=== PATIENT | male | born 1945 | race Caucasian/White ===

== ENCOUNTER 2019-12-08 16:37 | Observation (INO) | payer MEDICARE, OTHER ==
[2019-12-08 17:38] LABS: Basophils % (A) 0 %; Eosinophils # (A) 0.2 k/uL (0-0.7); Eosinophils % (A) 3 %; HCT 40.8 % (39.0-53.0); Lymphocytes # (A) 1.5 k/uL (1.0-4.8); Lymphocytes % (A) 20 %; MCH 28.9 pg (25.0-35.0); MCV 90.5 fL (80.0-100.0); Mean Platelet Volume 7.2; Monocytes # (A) 0.6 k/uL (0-1.0); Monocytes % (A) 8 %; Neutrophils % (A) 66 %; Platelet Count 209 k/uL (150-450); RBC 4.51 m/uL (4.30-5.90); RDW 13.4 % (11.5-15.5); WBC 7.5 k/uL (3.8-10.6)
[2019-12-08 17:48] LABS: INR 2.8 (<1.2); Partial Thromboplastin Time 37.3 sec (22.0-30.0); Prothrombin Time 27.2 sec (9.0-12.0)
[2019-12-08 17:51] LABS: Lactic Acid, Venous 1.1 mmol/L (0.7-2.0)
[2019-12-08 17:57] LABS: ALT 16 U/L (4-49); AST 23 U/L (17-59); Acetaminophen <10.0 ug/mL; African American GFR (CKD) 89 (>60 ml/min/1.73 sqM); Albumin 3.9 g/dL (3.5-5.0); Alcohol <10 mg/dL; Alkaline Phosphatase 41 U/L (38-126); Anion Gap 8 mmol/L; Blood Urea Nitrogen 16 mg/dL (9-20); Calcium 9.1 mg/dL (8.4-10.2); Carbon Dioxide 25 mmol/L (22-30); Chloride 105 mmol/L (98-107); Creatine Kinase 104 U/L (55-170); Glucose 109 mg/dL (74-99); Non-African American GFR(CKD) 77 (>60 ml/min/1.73 sqM); Potassium 4.2 mmol/L (3.5-5.1); Salicylate <1.0 mg/dL; Sodium 138 mmol/L (137-145); Total Bilirubin 0.3 mg/dL (0.2-1.3); Total Protein 6.8 g/dL (6.3-8.2)
--- NOTE | 2019-12-08 18:17 | CT ---
EXAMINATION TYPE: CT brain wo con DATE OF EXAM: 12/08/2019 HISTORY: Altered mental status. CT DLP: 1099.4 mGycm. Automated Exposure Control for Dose Reduction was Utilized. TECHNIQUE: CT scan of the head is performed without contrast. COMPARISON: CT brain January 19, 2016. FINDINGS: There is no acute intracranial hemorrhage or midline shift identified. There is diffuse v entricular and sulcal prominence consistent with diffuse age-related cerebral atrophy. There is low- attenuation in the periventricular white matter consistent with chronic small vessel ischemic change. The globes are intact and the visualized sinuses are clear. IMPRESSION: No acute intracranial hemorrhage or midline shift. There is mild diffuse age-related ce rebral atrophy and moderate chronic small vessel ischemic change redemonstrated. No significant benedict ge from prior study.
[2019-12-08 18:22] LABS: Appearance,Urine Clear (Clear); Bilirubin,Urine Negative (Negative); Blood,Urine Negative (Negative); Color,Urine Colorless; Glucose,Urine (UA) Negative (Negative); Ketones,Urine Negative (Negative); Leukocyte Esterase,Urine Negative (Negative); Nitrite,Urine Negative (Negative); PH, Urine 5.5 (5.0-8.0); Protein,Urine Negative (Negative); Specific Gravity,Urine 1.004 (1.001-1.035); Urobilinogen,Urine <2.0 mg/dL (<2.0)
[2019-12-08 18:42] LABS: Amphetamine Screen,Urine Not Detected (NotDetected); Barbiturate Screen,Urine Not Detected (NotDetected); Benzodiazepines Screen,Urine Not Detected (NotDetected); Cocaine Screen,Urine Not Detected (NotDetected); Methadone Screen, Urine Not Detected (NotDetected); Opiate Screen,Urine Not Detected (NotDetected); Oxycodone Screen, Urine Not Detected (NotDetected); Phencyclidine Screen,Urine Not Detected (NotDetected); Tricyclic Antidepressant,Urine Not Detected (NotDetected); Urn Cannabinoid Scrn Not Detected (NotDetected)
--- NOTE | 2019-12-08 18:53 | ED ---
Weakness HPI - General Chief complaint: Weakness Stated complaint: Weakness, Dizzy, Confused Time Seen by Provider: 12/08/19 16:45 Source: patient Mode of arrival: ambulatory Limitations: no limitations - History of Present Illness Initial comments: Patient is a 74-year-old male with past medical history of coronary artery disease, DVT who presents to the emergency department with reported altered mental status. Patient has a history of vertigo and does take meclizine occasionally. Last time he took it was several years ago. States that last night he felt the room spining slightly and therefore took a meclizine around midnight. He reports today that the patient was having some difficulties arousing. She was outside working in the yard. He cannot the yard and sat in a chair. He appeared overtly sleepy and she got concerned therefore she brought him into the emergency room for evaluation. Patient denies taking excess of the meclizine. Denies taking any [id number] medications. Denies any illicit drug use. He has not had a trauma where he hit his head. He's got no unilateral numbness or weakness. Patient does arouse, is not confused and answers all questions appropriately however just states he feels generally weak. No fevers or chills. No neck pain or shortness of breath. No chest pain or shortness of breath. No recent medication changes. There are no other alleviating, Perceptin modifying factors - Related Data Home Medications Medication Instructions Recorded Confirmed Famotidine [Pepcid] 40 mg PO DAILY 12/08/19 12/08/19 Selenium 200 mcg PO DAILY 12/09/19 12/09/19 Warfarin [Coumadin] 2 mg PO TUTHSA 12/09/19 12/09/19 Warfarin [Coumadin] 4 mg PO SUMOWEFR 12/09/19 12/09/19 Allergies Allergy/AdvReac Type Severity Reaction Status Date / Time heparin Allergy Unknown Verified 12/08/19 18:56 Review of Systems ROS Statement: Those systems with pertinent positive or pertinent negative responses have been documented in the HPI. ROS Other: All systems not noted in ROS Statement are negative. Past Medical History Past Medical History: Blood Disorder, Coronary Artery Disease (CAD), Deep Vein Thrombosis (DVT), Hyperlipidemia, Myocardial Infarction (AR), Vascular Disorder Additional Past Medical History / Comment(s): heparin induced thromocytopenia, BEGINNINGS OF CATARACTS,ARTHRITIS, DIVERTICULITIS Last Myocardial Infarction Date:: 2002 History of Any Multi-Drug Resistant Organisms: None Reported Past Surgical History: Coronary Bypass/CABG, Hernia Repair Additional Past Surgical History / Comment(s): lien filter placement, left heart catheterization, CABG 2, colonoscopy about a year ago. Past Anesthesia/Blood Transfusion Reactions: No Reported Reaction, Motion Sickness Past Psychological History: No Psychological Hx Reported Smoking Status: Never smoker Past Alcohol Use History: None Reported Past Drug Use History: None Reported - Past Family History Mother Family Medical History: Renal Disease Father Family Medical History: Cancer, COPD Sister(s) Family Medical History: No Reported History Brother(s) Family Medical History: No Reported History General Exam Limitations: no limitations General appearance: alert, in no apparent distress, lethargic, other (follows all commands. Answers questions appropriately) Head exam: Present: atraumatic, normocephalic, normal inspection Eye exam: Present: normal appearance, PERRL, EOMI. Absent: scleral icterus, conjunctival injection, periorbital swelling ENT exam: Present: normal exam, mucous membranes moist Neck exam: Present: normal inspection. Absent: tenderness, meningismus, lymphadenopathy Respiratory exam: Present: normal lung sounds bilaterally. Absent: respiratory distress, wheezes, rales, rhonchi, stridor Cardiovascular Exam: Present: regular rate, normal rhythm, normal heart sounds. Absent: systolic murmur, diastolic murmur, rubs, gallop, clicks GI/Abdominal exam: Present: soft, normal bowel sounds. Absent: distended, tenderness, guarding, rebound, rigid Extremities exam: Present: normal inspection, full ROM, normal capillary refill. Absent: tenderness, pedal edema, joint swelling, calf tenderness Back exam: Present: normal inspection Neurological exam: Present: alert, oriented X3, CN II-XII intact Psychiatric exam: Present: normal affect, normal mood Skin exam: Present: warm, dry, intact, normal color. Absent: rash Course Vital Signs 12/08/19 12/08/19 16:44 19:37 Temperature 98.4 F Pulse Rate 63 50 L Respiratory 16 16 Rate Blood Pressure 115/69 139/89 O2 Sat by Pulse 95 99 Oximetry EKG Findings - EKG Comments: EKG Findings:: EKG demonstrates normal sinus rhythm with a sinus arrhythmia. Rate of 63. Return once daily. QRS 152. QTC of 468. There is a right bundle- branch block with a left anterior fascicular block. No acute ST segment elevations. Medical Decision Making - Medical Decision Making Upon arrival the patient is placed into room 2. A thorough history and physical exam was performed. Peripheral IV was established. Laboratory studies were co nducted. A urinalysis obtained. Patient's INR is 2.8. Remainder of laboratory studies are unremarkable. I did CT the patient's brain which demonstrates no acute intracranial hemorrhage or midline shift. Patient has an NIH of 0. This is reassessed multiple times and remains negative. The patient does arouse with verbal stimuli. The patient does appear continuously sedated and therefore I do recommend hospital admission for continued observation and possible neurology consultation of this does not improve. Patient's and patient were agreeable to this. Bridging orders were placed. Discussed the case with Dr. Rendon who accepted admission. Patient is awaiting a bed on the floor - Lab Data Result diagrams: 12/09/19 05:51 12/09/19 05:51 Lab Results 12/08/19 12/08/19 12/08/19 Range/Units 17:15 17:18 17:18 WBC 7.5 (3.8-10.6) k/uL RBC 4.51 (4.30-5.90) m/uL Hgb 13.0 (13.0-17.5) gm/dL Hct 40.8 (39.0-53.0) % MCV 90.5 (80.0-100.0) fL MCH 28.9 (25.0-35.0) pg MCHC 32.0 (31.0-37.0) g/dL RDW 13.4 (11.5-15.5) % Plt Count 209 (150-450) k/uL Neutrophils % 66 % Lymphocytes % 20 % Monocytes % 8 % Eosinophils % 3 % Basophils % 0 % Neutrophils # 5.0 (1.3-7.7) k/uL Lymphocytes # 1.5 (1.0-4.8) k/uL Monocytes # 0.6 (0-1.0) k/uL Eosinophils # 0.2 (0-0.7) k/uL Basophils # 0.0 (0-0.2) k/uL PT 27.2 H (9.0-12.0) sec INR 2.8 H (<1.2) APTT 37.3 H (22.0-30.0) sec Sodium (137-145) mmol/L Potassium (3.5-5.1) mmol/L Chloride (98-107) mmol/L Carbon Dioxide (22-30) mmol/L Anion Gap mmol/L BUN (9-20) mg/dL Creatinine (0.66-1.25) mg/dL Est GFR (CKD-EPI)AfAm (>60 ml/min/1.73 sqM) Est GFR (CKD-EPI)NonAf (>60 ml/min/1.73 sqM) Glucose (74-99) mg/dL POC Glucose (mg/dL) 114 H (75-99) mg/dL POC Glu Bank Messenger ID Rebecca Caro Plasma Lactic Acid Guido (0.7-2.0) mmol/L Calcium (8.4-10.2) mg/dL Total Bilirubin (0.2-1.3) mg/dL AST (17-59) U/L ALT (4-49) U/L Alkaline Phosphatase (38-126) U/L Ammonia (<30) umol/L Creatine Kinase (55-170) U/L Troponin I (0.000-0.034) ng/mL Total Protein (6.3-8.2) g/dL Albumin (3.5-5.0) g/dL Urine Color Urine Appearance (Clear) Urine pH (5.0-8.0) Ur Specific [place] (1.001-1.035) Urine Protein (Negative) Urine Glucose (UA) (Negative) Urine Ketones (Negative) Urine Blood (Negative) Urine Nitrite (Negative) Urine Bilirubin (Negative) Urine Urobilinogen (<2.0) mg/dL Ur Leukocyte Esterase (Negative) Salicylates mg/dL Urine Opiates Screen (NotDetected) Ur Oxycodone Screen (NotDetected) Urine Methadone Screen (NotDetected) Ur Propoxyphene Screen (NotDetected) Acetaminophen ug/mL Ur Barbiturates Screen (NotDetected) U Tricyclic Antidepress (NotDetected) Ur Phencyclidine Scrn (NotDetected) Ur Amphetamines Screen (NotDetected) U Methamphetamines Scrn (NotDetected) U Benzodiazepines Scrn (NotDetected) Urine Cocaine Screen (NotDetected) U Marijuana (THC) Screen (NotDetected) Serum Alcohol mg/dL 12/08/19 12/08/19 12/08/19 Range/Units 17:18 17:18 17:18 WBC (3.8-10.6) k/uL RBC (4.30-5.90) m/uL Hgb (13.0-17.5) gm/dL Hct (39.0-53.0) % MCV (80.0-100.0) fL MCH (25.0-35.0) pg MCHC (31.0-37.0) g/dL RDW (11.5-15.5) % Plt Count (150-450) k/uL Neutrophils % % Lymphocytes % % Monocytes % % Eosinophils % % Basophils % % Neutrophils # (1.3-7.7) k/uL Lymphocytes # (1.0-4.8) k/uL Monocytes # (0-1.0) k/uL Eosinophils # (0-0.7) k/uL Basophils # (0-0.2) k/uL PT (9.0-12.0) sec INR (<1.2) APTT (22.0-30.0) sec Sodium 138 (137-145) mmol/L Potassium 4.2 (3.5-5.1) mmol/L Chloride 105 (98-107) mmol/L Carbon Dioxide 25 (22-30) mmol/L Anion Gap 8 mmol/L BUN 16 (9-20) mg/dL Creatinine 0.96 (0.66-1.25) mg/dL Est GFR (CKD-EPI)AfAm 89 (>60 ml/min/1.73 sqM) Est GFR (CKD-EPI)NonAf 77 (>60 ml/min/1.73 sqM) Glucose 109 H (74-99) mg/dL POC Glucose (mg/dL) (75-99) mg/dL POC Glu Bank Messenger ID Plasma Lactic Acid Guido 1.1 (0.7-2.0) mmol/L Calcium 9.1 (8.4-10.2) mg/dL Total Bilirubin 0.3 (0.2-1.3) mg/dL AST 23 (17-59) U/L ALT 16 (4-49) U/L Alkaline Phosphatase 41 (38-126) U/L Ammonia <9 (<30) umol/L Creatine Kinase 104 (55-170) U/L Troponin I <0.012 (0.000-0.034) ng/mL Total Protein 6.8 (6.3-8.2) g/dL Albumin 3.9 (3.5-5.0) g/dL Urine Color Urine Appearance (Clear) Urine pH (5.0-8.0) Ur Specific [place] (1.001-1.035) Urine Protein (Negative) Urine Glucose (UA) (Negative) Urine Ketones (Negative) Urine Blood (Negative) Urine Nitrite (Negative) Urine Bilirubin (Negative) Urine Urobilinogen (<2.0) mg/dL Ur Leukocyte Esterase (Negative) Salicylates <1.0 mg/dL Urine Opiates Screen (NotDetected) Ur Oxycodone Screen (NotDetected) Urine Methadone Screen (NotDetected) Ur Propoxyphene Screen (NotDetected) Acetaminophen <10.0 ug/mL Ur Barbiturates Screen (NotDetected) U Tricyclic Antidepress (NotDetected) Ur Phencyclidine Scrn (NotDetected) Ur Amphetamines Screen (NotDetected) U Methamphetamines Scrn (NotDetected) U Benzodiazepines Scrn (NotDetected) Urine Cocaine Screen (NotDetected) U Marijuana (THC) Screen (NotDetected) Serum Alcohol <10 mg/dL 12/08/19 Range/Units 18:11 WBC (3.8-10.6) k/uL RBC (4.30-5.90) m/uL Hgb (13.0-17.5) gm/dL Hct (39.0-53.0) % MCV (80.0-100.0) fL MCH (25.0-35.0) pg MCHC (31.0-37.0) g/dL RDW (11.5-15.5) % Plt Count (150-450) k/uL Neutrophils % % Lymphocytes % % Monocytes % % Eosinophils % % Basophils % % Neutrophils # (1.3-7.7) k/uL Lymphocytes # (1.0-4.8) k/uL Monocytes # (0-1.0) k/uL Eosinophils # (0-0.7) k/uL Basophils # (0-0.2) k/uL PT (9.0-12.0) sec INR (<1.2) APTT (22.0-30.0) sec Sodium (137-145) mmol/L Potassium (3.5-5.1) mmol/L Chloride (98-107) mmol/L Carbon Dioxide (22-30) mmol/L Anion Gap mmol/L BUN (9-20) mg/dL Creatinine (0.66-1.25) mg/dL Est GFR (CKD-EPI)AfAm (>60 ml/min/1.73 sqM) Est GFR (CKD-EPI)NonAf (>60 ml/min/1.73 sqM) Glucose (74-99) mg/dL POC Glucose (mg/dL) (75-99) mg/dL POC Glu Bank Messenger ID Plasma Lactic Acid Guido (0.7-2.0) mmol/L Calcium (8.4-10.2) mg/dL Total Bilirubin (0.2-1.3) mg/dL AST (17-59) U/L ALT (4-49) U/L Alkaline Phosphatase (38-126) U/L Ammonia (<30) umol/L Creatine Kinase (55-170) U/L Troponin I (0.000-0.034) ng/mL Total Protein (6.3-8.2) g/dL Albumin (3.5-5.0) g/dL Urine Color Colorless Urine Appearance Clear (Clear) Urine pH 5.5 (5.0-8.0) Ur Specific [place] 1.004 (1.001-1.035) Urine Protein Negative (Negative) Urine Glucose (UA) Negative (Negative) Urine Ketones Negative (Negative) Urine Blood Negative (Negative) Urine Nitrite Negative (Negative) Urine Bilirubin Negative (Negative) Urine Urobilinogen <2.0 (<2.0) mg/dL Ur Leukocyte Esterase Negative (Negative) Salicylates mg/dL Urine Opiates Screen Not Detected (NotDetected) Ur Oxycodone Screen Not Detected (NotDetected) Urine Methadone Screen Not Detected (NotDetected) Ur Propoxyphene Screen Not Detected (NotDetected) Acetaminophen ug/mL Ur Barbiturates Screen Not Detected (NotDetected) U Tricyclic Antidepress Not Detected (NotDetected) Ur Phencyclidine Scrn Not Detected (NotDetected) Ur Amphetamines Screen Not Detected (NotDetected) U Methamphetamines Scrn Not Detected (NotDetected) U Benzodiazepines Scrn Not Detected (NotDetected) Urine Cocaine Screen Not Detected (NotDetected) U Marijuana (THC) Screen Not Detected (NotDetected) Serum Alcohol mg/dL Disposition Clinical Impression: Acute encephalopathy Disposition: ADMITTED IP TO THIS HOSP Condition: Stable Is patient prescribed a controlled substance at d/c from ED?: No Decision to Admit Reason: Admit from EC Decision Date: 12/08/19 Decision Time: 18:59
[2019-12-08] MEDS ORDERED: NALOXONE 0.4 MG/ML 1 ML VIAL IV PRN (18:59)
[2019-12-08] MEDS: SODIUM CHLORIDE 0.9% 1,000 ML IV SCH (19:35)
[2019-12-09 06:41] LABS: African American GFR (CKD) >90 (>60 ml/min/1.73 sqM); Anion Gap 5 mmol/L; Blood Urea Nitrogen 15 mg/dL (9-20); Calcium 8.4 mg/dL (8.4-10.2); Carbon Dioxide 27 mmol/L (22-30); Chloride 108 mmol/L (98-107); Glucose 101 mg/dL (74-99); Non-African American GFR(CKD) 84 (>60 ml/min/1.73 sqM); Potassium 4.4 mmol/L (3.5-5.1); Sodium 140 mmol/L (137-145)
[2019-12-09 06:56] LABS: Basophils % (A) 0 %; Eosinophils # (A) 0.2 k/uL (0-0.7); Eosinophils % (A) 3 %; HCT 40.1 % (39.0-53.0); Lymphocytes # (A) 1.4 k/uL (1.0-4.8); Lymphocytes % (A) 19 %; MCH 29.8 pg (25.0-35.0); MCHC 32.5 g/dL (31.0-37.0); MCV 91.7 fL (80.0-100.0); Mean Platelet Volume 7.2; Monocytes # (A) 0.5 k/uL (0-1.0); Monocytes % (A) 7 %; Neutrophils % (A) 69 %; Platelet Count 188 k/uL (150-450); RBC 4.37 m/uL (4.30-5.90); RDW 13.4 % (11.5-15.5); WBC 7.2 k/uL (3.8-10.6)
[2019-12-09] MEDS: SODIUM CHLORIDE 0.9% 1,000 ML IV SCH (08:11)
[2019-12-09] MEDS ORDERED: FAMOTIDINE 20 MG TAB PO SCH (09:00)
[2019-12-09 09:36] LABS: INR 2.5 (<1.2); Prothrombin Time 24.7 sec (9.0-12.0)
[2019-12-09 10:21] VITALS: RESP 18
--- NOTE | 2019-12-09 12:45 | P.CNNES ---
History of Present Illness Consult date: 12/09/19 Requesting physician: Jelly Engle Reason for Consult: Acute encephalopathy History of Present Illness: Patient is a 74-year-old male with past medical history of coronary artery disease, DVT on anticoagulation with Coumadin came to the hospital yesterday at 4:37 PM with altered mental status. Patient states that he has history of episodic dizziness/lightheadedness. The first episode occurred about 1-1/2 years ago, for which she was given Antivert. He took it for 4 or 5 days of the symptoms resolved. He was fine until 2 nights ago, when he had similar episode. He felt dizzy lightheaded. He was not doing any particular activity which triggered it. At bedtime he took the Antivert and then went to sleep. The next day, which is yesterday, he was very drowsy, groggy, hard to wake up. He denied any slurred speech facial droop, double vision loss of vision headaches, focal weakness or any focal symptoms. He got concerned therefore came to the ER. Patient's vital signs on arrival was 115/69, pulse rate 60 temperature 98.4. Patient underwent CT head, which showed no acute intracranial hemorrhage or midline shift. Mild diffuse age-related cerebral atrophy and moderate chronic small vessel ischemic change. No differentiation from prior study. On my review, the visualized paranasal sinuses are clear. External auditory canal is clear. EKG shows normal sinus rhythm with sinus arrhythmia. Right bundle branch block. Left anterior fascicular block. Patient's blood test shows normal CBC. PT is 27.8 INR 2.8 PTT 37.3. Chem-7 normal. Hepatic panel normal ammonia <9. Troponin, UA, urine drug screen negative. Patient states that his mentation has improved. He still feels slightly off b alance when walking. Patient is a nonsmoker. Does not drink alcohol. Patient has history of coronary artery disease. He has history of bypass surgery. He has chronic hearing loss, chronic tinnitus for almost 20 years. Denies diabetes or hypertension. Patient states that when he gets up fast, he does get dizzy. He does not have any positional vertigo. Does not get dizzy when he rolls over in the bed bends down or looks up. Review of Systems As per history of present illness. All other 14 point review of systems reviewed and was unremarkable. Denies hoarseness sore throat dysphagia. Denies any chest pain shortness of breath. Denies wheezing cough. Denies abdominal pain nausea vomiting. Past Medical History Past Medical History: Blood Disorder, Coronary Artery Disease (CAD), Deep Vein Thrombosis (DVT), Hyperlipidemia, Myocardial Infarction (PR), Vascular Disorder Additional Past Medical History / Comment(s): heparin induced thromocytopenia, BEGINNINGS OF CATARACTS,ARTHRITIS, DIVERTICULITIS Last Myocardial Infarction Date:: 2002 History of Any Multi-Drug Resistant Organisms: None Reported Past Surgical History: Coronary Bypass/CABG, Hernia Repair Additional Past Surgical History / Comment(s): lien filter placement, left heart catheterization, CABG 2, colonoscopy about a year ago. Past Anesthesia/Blood Transfusion Reactions: No Reported Reaction, Motion Sickness Past Psychological History: No Psychological Hx Reported Smoking Status: Never smoker Past Alcohol Use History: None Reported Past Drug Use History: None Reported - Past Family History Mother Family Medical History: Renal Disease Father Family Medical History: Cancer, COPD Sister(s) Family Medical History: No Reported History Brother(s) Family Medical History: No Reported History Medications and Allergies Home Medications Medication Instructions Recorded Confirmed Type Famotidine [Pepcid] 40 mg PO DAILY 12/08/19 12/08/19 History Selenium 200 mcg PO DAILY 12/09/19 12/09/19 History Warfarin [Coumadin] 2 mg PO TUTHSA 12/09/19 12/09/19 History Warfarin [Coumadin] 4 mg PO SUMOWEFR 12/09/19 12/09/19 History Allergies Allergy/AdvReac Type Severity Reaction Status Date / Time heparin Allergy Unknown Verified 12/08/19 18:56 Physical Examination - Vital Signs Vital Signs: Vital Signs Temp Pulse Pulse Resp BP BP Pulse Ox 12/09/19 04:43 98.5 F 66 18 126/77 94 L 12/08/19 23:40 16 12/08/19 20:20 97.8 F 60 16 132/67 97 12/08/19 20:10 16 12/08/19 19:37 50 L 16 139/89 99 12/08/19 16:44 98.4 F 63 16 115/69 95 Intake and Output 12/08/19 12/09/19 12/09/19 22:59 06:59 14:59 Intake Total 350 1100 Balance 350 1100 Intake: Intake, IV Titration 150 600 Amount Sodium Chloride 0.9% 1, 150 600 000 ml @ 75 mls/hr IV . [id number] [facility] Rx#:[id number] Oral 200 500 Other: Voiding Method Toilet Toilet Toilet Urinal Urinal Urinal # Voids 1 1 Weight 79.379 kg On examination patient is an elderly male, very pleasant in no acute distress. He is alert and awake, fully oriented to time place and person. Speech and language functions are normal. Attention, concentration, fund of knowledge is adequate. On cranial nerve examination pupils are round and reactive to light, visual chisholm are full on confrontation. Extraocular muscles are intact with no nystagmus. Face is symmetric, tongue protrudes to the midline. Palatal elevation and sensation normal. Hearing is moderately decreased particularly for finger rubbing. Shoulder shrug normal. On muscle strength testing there is no pronator drift and the strength is normal in arms and legs distally and proximally. Reflexes are 1+ and plantars are downgoing bilaterally. Sensory touch is equal. No ataxia for [id number] or [id number] testing. Tone and bulk of muscles normal. Gait deferred. S1 and S2 audible. Abdomen soft nontender. Chest clear. Patient has mild peripheral edema. Peripheral pulses are not clearly felt. He has some skin color change distally in the legs. Results - Laboratory Findings CBC and BMP: 12/09/19 05:51 12/09/19 05:51 Abnormal Lab Findings: Abnormal Labs 12/08/19 12/08/19 12/09/19 17:18 17:18 05:51 PT 27.2 H INR 2.8 H APTT 37.3 H Chloride 108 H Glucose 109 H 101 H 12/09/19 08:13 PT 24.7 H INR 2.5 H APTT Chloride Glucose Assessment and Plan Assessment: * 74-year-old male came with an episode of dizziness, lightheadedness. Patient took Antivert and then became somnolent the whole next day. Uncertain if it was a side effect of medication, or some other cause of transient encephalopathy. All other metabolic workup negative. No focal symptoms noted, therefore TIA unlikely. Patient is on anticoagulation with therapeutic INR. * Intermittent episodes of vertigo, likely due to peripheral vestibular dysfunction. Patient does not have any positional vertigo, therefore doubt BPPV. * History of DVT on anticoagulation. Plan: * We will check carotid Doppler to rule out carotid stenosis. * Suggest ENT consult as an outpatient for ENFG/VNG, to evaluate for vestibular dysfunction, rule out BPPV or other causes of vestibulopathy. * Continue Coumadin. INR is therapeutic. * Neurologically clear for discharge, after carotid Doppler results are available. * We will check B12, folate. Addendum: Carotid Doppler showed no hemodynamic significant stenosis of the proximal ICA. Antegrade flow in both vertebral arteries.
--- NOTE | 2019-12-09 13:03 | US ---
EXAMINATION TYPE: US carotid duplex BILAT DATE OF EXAM: 12/09/2019 COMPARISON: NONE CLINICAL HISTORY: rule out stenosis. Altered mental status, confusion EXAM MEASUREMENTS: RIGHT: Peak Systolic Velocity (PSV) cm/sec ----- Right CCA: 100.0 ----- Right ICA: 96.0 ----- Right ECA: 121.0 ICA/CCA ratio: 1.0 RIGHT: End Diastole cm/sec ----- Right CCA: 22.7 ----- Right ICA: 23.2 ----- Right ECA: 19.4 LEFT: Peak Systolic Velocity (PSV) cm/sec ----- Left CCA: 109.0 ----- Left ICA: 87.5 ----- Left ECA: 123.0 ICA/CCA ratio: 0.8 LEFT: End Diastole cm/sec ----- Left CCA: 22.0 ----- Left ICA: 17.8 ----- Left ECA: 24.9 VERTEBRALS (direction of flow): Right Vertebral: Antegrade Left Vertebral: Antegrade Rhythm: Normal Bilateral intimal thickening, minimal plaque bilateral bulb, no elevated velocities, no significant s tenosis. Grayscale, color Doppler, spectral Doppler imaging performed of the carotid arteries. Waveform analysis does not show significant stenosis of the internal carotid arteries. IMPRESSION: No hemodynamic significant stenosis of the proximal internal carotid arteries by Doppler criteria, an indirect measurement of carotid stenosis Criteria for Assigning % of Stenosis / Diameter reduction (Estimation based on the indirect measurements of the internal carotid artery velocities (ICA PSV). 1. Normal (no stenosis)=ICA PSV < 125 cm/s: ratio < 2.0: ICA EDV<40 cm/s. 2. Less than 50% stenosis=ICA PSV < 125 cm/s: ratio < 2.0: ICA EDV<40 cm/s. 3. 50 to 69% stenosis=ICA PSV of 125 to 230 cm/s: ration 2.0 ? 4.0: ICA EDV 40-100 cm/s. 4. Greater than 70% stenosis to near occlusion= ICA PSV > 230 cm/s: ratio > 4.0: ICA EDV > 100 cm/s. 5. Near occlusion= ICA PSV velocities may be low or undetectable: variable ratio and ICA EDV. 6. Total occlusion=unable to detect flow.
--- NOTE | 2019-12-09 13:35 | P.HPIM ---
History of Present Illness H&P Date: 12/09/19 HISTORY AND PHYSICAL AND DISCHARGE SUMMARY: Patient is a 74-year-old male patient of Dr. Eric Lazaro with past medical history of coronary artery disease status post [address] Stevenson, DVT on long-term Coumadin, hyperlipidemia, peripheral vascular disease, history of heparin-induced cytopenia. Patient gives history that he has had problems with dizziness in the past and has taken meclizine before. He has not taking any meclizine for greater than 1 year. Yesterday he was feeling the room spinning and he took meclizine around midnight and then he was having difficulty arousing. His thought he was sleepy and she was concerned and brought him into the emergency center for evaluation. He did not have any numbness or weakness. He was not confused. He was arousable and able to answer questions appropriately but felt a little off. He had some mild generalized weakness. He states he has also had trouble taking Valium in the past. He was afebrile in hemodynamically stable, EKG was a sinus rhythm with no acute ST changes. CBC electrolytes and renal function are all within normal limits. Blood sugar 109, INR 2.8. Liver function tests normal. Salicylate level, acetaminophen level and alcohol levels were all normal. Urinalysis was negative for infection. Urine drug screen was negative. Lactic acid 1.1, ammonia level less than 9. Troponin normal. Patient was placed on the Medr floor and consult with neurology was obtained. Patient was seen by Dr. Phillip, vitamin B12 and folate levels ordered. Carotid duplex showed no hemodynamically significant stenosis. Recommended ENT consult for outpatient ENFG/VNG. Patient states this morning that he is close to his baseline and feels that he is safe to go home. He denie s any current dizziness or lightheadedness. He denies any loss of consciousness. He does have chronic hearing loss. The patient will be discharged home today in follow-up with Dr. Lazaro next week. ENT follow-up to be determined by Dr. Lazaro. Review of Systems Constitutional: No fever, no chills, no night sweats. No weight change. No weakness, fatigue or lethargy. Reports daytime sleepiness. EENT: No headache. No blurred vision or double vision, no loss of vision. No loss of Hearing, no ringing in the ears, no dizziness. No nasal drainage or congestion. No epistaxis. No sore throat. Lungs: No shortness of breath, cough, no sputum production. No wheezing. Cardiovascular: No chest pain, no lower extremity edema. No palpitations. No paroxysmal nocturnal dyspnea. No orthopnea. No lightheadedness or dizziness. No syncopal episodes. Abdominal: No abdominal pain. No nausea, vomiting. No diarrhea. No constipation. No bloody or tarry stools. No loss of appetite. Genitourinary: No dysuria, increased frequency, urgency. No urinary retention. Musculoskeletal: No myalgias. No muscle weakness, no gait dysfunction, no frequent falls. No back pain. No neck pain. Integumentary: No wounds, no lesions. No rash or pruritus. No unusual brui sing. No change in hair or nails. Neurologic: No aphasia. No facial droop. No change in mentation. No head injury. No headache. No paralysis. No paresthesia. Psychiatric: No depression. No anxiety. No mood swings. Endocrine: No abnormal blood sugars. No weight change. No excessive sweating or thirst. No cold intolerance. Physical Examination Gen: This is a 74-year-old male. Patient is resting in bed and appears to be comfortable and in no acute distress. HEENT: Head is atraumatic, normocephalic. Pupils equal, round. Sclerae is anicteric. NECK: Supple. No JVD. No lymphadenopathy. No thyromegaly. LUNGS: Clear to auscultation. No wheezes or rhonchi. No intercostal retractions. HEART: Regular rate and rhythm. No murmur. ABDOMEN: Soft. Bowel sounds are present. No masses. No tenderness. EXTREMITIES: No pedal edema. No calf tenderness. NEUROLOGICAL: Patient is awake, alert and oriented x3. Cranial nerves 2 through 12 are grossly intact. Assessment and Plan 1. Vertigo. 2. History of coronary artery disease with previous 2 vessel CABG, stable no complaints of chest pain. 3. DVT. Continue Coumadin. 4. History of heparin-induced thrombus cytopenia. 5. Peripheral vascular disease. 6. Hyperlipidemia. 7. COVID-19 infection not present. Patient placed as Observation status. Discharge plan: home Impression and plan of care have been directed as dictated by the signing physician. Lula Verduzco nurse practitioner acting as scribe for signing physician. Past Medical History Past Medical History: Blood Disorder, Coronary Artery Disease (CAD), Deep Vein Thrombosis (DVT), Hyperlipidemia, Myocardial Infarction ([place]), Vascular Disorder Additional Past Medical History / Comment(s): heparin induced thromocytopenia, BEGINNINGS OF CATARACTS,ARTHRITIS, DIVERTICULITIS Last Myocardial Infarction Date:: 2002 History of Any Multi-Drug Resistant Organisms: None Reported Past Surgical History: Coronary Bypass/CABG, Hernia Repair Additional Past Surgical History / Comment(s): lien filter placement, left heart catheterization, CABG 2, colonoscopy about a year ago. Past Anesthesia/Blood Transfusion Reactions: No Reported Reaction, Motion Sickness Past Psychological History: No Psychological Hx Reported Smoking Status: Never smoker Past Alcohol Use History: None Reported Additional Past Alcohol Use History / Comment(s): Patient is a lifelong nonsmoker, he drinks alcohol rarely. No marijuana or illicit drug use. He is and lives at home with his . Past Drug Use History: None Reported - Past Family History Mother Family Medical History: Renal Disease Additional Family Medical History / Comment(s): Mother at age 88 from chronic renal disease. Father Family Medical History: Cancer, COPD Additional Family Medical History / Comment(s): Father at age 72 from lung cancer. Sister(s) Family Medical History: No Reported History Additional Family Medical History / Comment(s): Patient has 3 sisters with no major medical problems. Brother(s) Family Medical History: No Reported History Additional Family Medical History / Comment(s): Patient has 3 half-brothers with no major medical problems. Patient has 6 children with no major medical problems. Medications and Allergies Home Medications Medication Instructions Recorded Confirmed Type Famotidine [Pepcid] 40 mg PO DAILY 12/08/19 12/08/19 History Selenium 200 mcg PO DAILY 12/09/19 12/09/19 History Warfarin [Coumadin] 2 mg PO TUTHSA 12/09/19 12/09/19 History Warfarin [Coumadin] 4 mg PO SUMOWEFR 12/09/19 12/09/19 History Allergies Allergy/AdvReac Type Severity Reaction Status Date / Time heparin Allergy Unknown Verified 12/08/19 18:56 Physical Exam Vitals: Vital Signs Temp Pulse Pulse Resp BP BP Pulse Ox 12/09/19 04:43 98.5 F 66 18 126/77 94 L 12/08/19 23:40 16 12/08/19 20:20 97.8 F 60 16 132/67 97 12/08/19 20:10 16 12/08/19 19:37 50 L 16 139/89 99 12/08/19 16:44 98.4 F 63 16 115/69 95 Intake and Output 12/08/19 12/09/19 12/09/19 22:59 06:59 14:59 Intake Total 350 1100 Balance 350 1100 Intake: Intake, IV Titration 150 600 Amount Sodium Chloride 0.9% 1, 150 600 000 ml @ 75 mls/hr IV . [id number] MAURICIO Rx#:[id number] Oral 200 500 Other: Voiding Method Toilet Toilet Urinal Urinal # Voids 1 1 Weight 79.379 kg Results CBC & Chem 7: 12/09/19 05:51 12/09/19 05:51 Labs: Abnormal Lab Results - Last 24 Hours (Table) 12/08/19 12/08/19 12/09/19 Range/Units 17:18 17:18 05:51 PT 27.2 H (9.0-12.0) sec INR 2.8 H (<1.2) APTT 37.3 H (22.0-30.0) sec Chloride 108 H (98-107) mmol/L Glucose 109 H 101 H (74-99) mg/dL Thrombosis Risk Factor Assmnt - Choose All That Apply Any of the Below Risk Factors Present?: Yes Other Risk Factors: Yes Each Risk Factor Represents 3 Points: Age 75 years or older, Heparin-induced thr ombocytopenia (HIT) Other congenital or acquired thrombophilia - If yes, enter type in comment: No Thrombosis Risk Factor Assessment Total Risk Factor Score: 6 Thrombosis Risk Factor Assessment Level: High Risk
[2019-12-09 14:09] LABS: Glucose,Whole Blood 114 mg/dL (75-99)
[2019-12-09 14:16] VITALS: BP 131/76; PULSE 69; TEMP 97.8
[2019-12-09] MEDS ORDERED: WARFARIN 2 MG TAB PO ONE (18:00)
[2019-12-10 10:49] LABS: Folate, Serum 16.4 ng/mL
== END 2019-12-09 16:25 | disposition home or self-care (01) ==
LOC: EC 16:37 → 5NMEDONC 18:59
PROVIDERS: ADMIT Internal Medicine Geriatric Medicine; ATTEND Internal Medicine Geriatric Medicine
DX: G92 Toxic encephalopathy (principal); T45.0X5A Adverse effect of antiallergic and antiemetic drugs, initial encounter; I25.10 Atherosclerotic heart disease of native coronary artery without angina pectoris; R42 Dizziness and giddiness; E78.5 Hyperlipidemia, unspecified; I73.9 Peripheral vascular disease, unspecified; H91.90 Unspecified hearing loss, unspecified ear; D75.9 Disease of blood and blood-forming organs, unspecified; I25.2 Old myocardial infarction; D75.82 Heparin induced thrombocytopenia (HIT); T45.515A Adverse effect of anticoagulants, initial encounter; H93.19 Tinnitus, unspecified ear; M19.90 Unspecified osteoarthritis, unspecified site; Z95.1 Presence of aortocoronary bypass graft; Z86.718 Personal history of other venous thrombosis and embolism; Z87.19 Personal history of other diseases of the digestive system; Z80.1 Family history of malignant neoplasm of trachea, bronchus and lung; Z82.5 Family history of asthma and other chronic lower respiratory diseases; Z79.01 Long term (current) use of anticoagulants; Z79.899 Other long term (current) drug therapy; Z88.8 Allergy status to other drugs, medicaments and biological substances; Z11.59 Encounter for screening for other viral diseases
CPT/HCPCS: 99285; 36415; 93005; 97161; 80053; 80048; 82607; 82140; 82550; 82746; 83605; 84484; 85025 ×2; 85610 ×2; 85730; 81003; 80306; 83520; 93880; 70450; G0378 ×2; G0480 ×2; U0003; 80320; 80329

== ENCOUNTER 2020-05-03 16:50 | Observation (INO) | payer MEDICARE, OTHER ==
[2020-05-03] MEDS ORDERED: ASPIRIN 81 MG PO STA (17:36)
[2020-05-03] MEDS ORDERED: NITROGLYCERIN OINT 1 INCH/GM PACKET TOPICAL STA (17:36)
--- NOTE | 2020-05-03 17:45 | ED ---
General Adult HPI - General Chief complaint: Chest Pain Stated complaint: Chest Discomfort Time Seen by Provider: 05/03/20 17:05 Source: patient, RN notes reviewed, old records reviewed Mode of arrival: ambulatory Limitations: no limitations - History of Present Illness Initial comments: This is a 74-year-old male who presents emergency department with past medical history significant for bypass surgery. Patient also has a high cholesterol. Patient comes into the emergency department today complaining of chest pain is been intermittent since yesterday. Patient states usually lasts 20-30 minutes when it comes. Patient states it then dissipates. Patient states currently he has no chest pain at all. Patient denies any difficulty breathing shortness of breath per patient denies any radiation of the pain. Patient denies any diaphoretic episodes. Patient denies any nausea vomiting. Patient has had no lightheadedness dizziness or near syncopal episode. Patient denies any recent fever chills or cough. Patient denies any lower extremity swelling or calf tenderness. - Related Data Home Medications Medication Instructions Recorded Confirmed Famotidine [Pepcid] 20 mg PO DAILY 12/08/19 05/03/20 Cholecalciferol [Vitamin D3 (25 2,000 unit PO DAILY 05/03/20 05/03/20 Mcg = 1000 Iu)] Potassium Gluconate 99 mg PO DAILY 05/03/20 05/03/20 Warfarin Sodium 2 mg PO TUTHSA@0900 05/03/20 05/03/20 Warfarin Sodium 4 mg PO SUMOWEFR@0900 05/03/20 05/03/20 Zinc 50 mg PO DAILY 05/03/20 05/03/20 Allergies Allergy/AdvReac Type Severity Reaction Status Date / Time heparin Allergy HEPARIN Verified 05/03/20 18:01 INDUCED THROMBOCYTOPENIA Review of Systems ROS Statement: Those systems with pertinent positive or pertinent negative responses have been documented in the HPI. ROS Other: All systems not noted in ROS Statement are negative. Past Medical History Past Medical History: Blood Disorder, Coronary Artery Disease (CAD), Deep Vein Thrombosis (DVT), Hyperlipidemia, Myocardial Infarction ([place]), Vascular Disorder Additional Past Medical History / Comment(s): heparin induced thromocytopenia, BEGINNINGS OF CATARACTS,ARTHRITIS, DIVERTICULITIS Last Myocardial Infarction Date:: 2002 History of Any Multi-Drug Resistant Organisms: None Reported Past Surgical History: Coronary Bypass/CABG, Hernia Repair Additional Past Surgical History / Comment(s): lien filter placement, left heart catheterization, CABG 2, colonoscopy about a year ago. Past Anesthesia/Blood Transfusion Reactions: No Reported Reaction, Motion Sickness Past Psychological History: No Psychological Hx Reported Smoking Status: Never smoker Past Alcohol Use History: None Reported Past Drug Use History: None Reported - Past Family History Mother Family Medical History: Renal Disease Additional Family Medical History / Comment(s): Mother at age 88 from chronic renal disease. Father Family Medical History: Cancer, COPD Additional Family Medical History / Comment(s): Father at age 72 from lung cancer. Sister(s) Family Medical History: No Reported History Additional Family Medical History / Comment(s): Patient has 3 sisters with no major medical problems. Brother(s) Family Medical History: No Reported History Additional Family Medical History / Comment(s): Patient has 3 half-brothers with no major medical problems. Patient has 6 children with no major medical problems. General Exam - General Exam Comments Initial Comments: GENERAL: Patient is well-developed and well-nourished. Patient is nontoxic and well- hydrated and is in no acute distress. ENT: Neck is soft and supple. No significant lymphadenopathy is noted. Oropharynx is clear. Moist mucous membranes. Neck has full range of motion without eliciting any pain. EYES: The sclera were anicteric and conjunctiva were pink and moist. Extraocular movements were intact and pupils were equal round and reactive to light. Eyelids were unremarkable. PULMONARY: Unlabored respirations. Good breath sounds bilaterally. No audible rales rhonchi or wheezing was noted. CARDIOVASCULAR: There is a regular rate and rhythm without any murmurs gallops or rubs. ABDOMEN: Soft and nontender with normal bowel sounds. SKIN: Skin is clear with no lesions or rashes and otherwise unremarkable. NEUROLOGIC: Patient is alert and oriented x3. Cranial nerves II through XII are grossly intact. Motor and sensory are also intact. Normal speech, volume and content. Symmetrical smile. MUSCULOSKELETAL: Normal extremities with adequate strength and full range of motion. No lower extremity swelling or edema. No calf tenderness. LYMPHATICS: No significant lymphadenopathy is noted PSYCHIATRIC: Normal psychiatric evaluation. Limitations: no limitations Course Vital Signs 05/03/20 17:04 Temperature 98.9 F Pulse Rate 74 Respiratory 18 Rate Blood Pressure 100/64 O2 Sat by Pulse 98 Oximetry Medical Decision Making - Medical Decision Making EKG shows normal sinus rhythm at 67 bpm. It was 152 QRS 124 QT interval 440 QTC is 473. Patient's EKG shows right bundle annmarie block. Patient has no ST segment elevation or depression Chest x-ray shows no acute abnormality. I spoke with Dr. Lazaro he agreed to admit the patient admitted the patient wrote admitting orders and consult cardiology. Start the patient on heparin because he is already on Coumadin. I did continue the aspirin and Nitropaste. Patient remained chest pain-free during the ER stay. - Lab Data Result diagrams: 05/03/20 17:43 05/03/20 17:43 Lab Results 05/03/20 05/03/20 05/03/20 Range/Units 17:43 17:43 17:43 WBC 8.2 (3.8-10.6) k/uL RBC 3.90 L (4.30-5.90) m/uL Hgb 11.7 L (13.0-17.5) gm/dL Hct 35.0 L (39.0-53.0) % MCV 89.8 (80.0-100.0) fL MCH 29.9 (25.0-35.0) pg MCHC 33.3 (31.0-37.0) g/dL RDW 13.1 (11.5-15.5) % Plt Count 265 (150-450) k/uL MPV 6.8 Neutrophils % 73 % Lymphocytes % 18 % Monocytes % 6 % Eosinophils % 1 % Basophils % 0 % Neutrophils # 5.9 (1.3-7.7) k/uL Lymphocytes # 1.5 (1.0-4.8) k/uL Monocytes # 0.5 (0-1.0) k/uL Eosinophils # 0.1 (0-0.7) k/uL Basophils # 0.0 (0-0.2) k/uL PT 15.0 H (9.0-12.0) sec INR 1.5 H (<1.2) APTT 31.1 H (22.0-30.0) sec Sodium 138 (137-145) mmol/L Potassium 4.4 (3.5-5.1) mmol/L Chloride 105 (98-107) mmol/L Carbon Dioxide 30 (22-30) mmol/L Anion Gap 3 mmol/L BUN 22 H (9-20) mg/dL Creatinine 0.89 (0.66-1.25) mg/dL Est GFR (CKD-EPI)AfAm >90 (>60 ml/min/1.73 sqM) Est GFR (CKD-EPI)NonAf 83 (>60 ml/min/1.73 sqM) Glucose 101 H (74-99) mg/dL Calcium 8.7 (8.4-10.2) mg/dL Magnesium 2.4 H (1.6-2.3) mg/dL Total Bilirubin 0.7 (0.2-1.3) mg/dL AST 27 (17-59) U/L ALT 18 (4-49) U/L Alkaline Phosphatase 44 (38-126) U/L Troponin I (0.000-0.034) ng/mL Total Protein 7.2 (6.3-8.2) g/dL Albumin 4.0 (3.5-5.0) g/dL 05/03/20 Range/Units 17:43 WBC (3.8-10.6) k/uL RBC (4.30-5.90) m/uL Hgb (13.0-17.5) gm/dL Hct (39.0-53.0) % MCV (80.0-100.0) fL MCH (25.0-35.0) pg MCHC (31.0-37.0) g/dL RDW (11.5-15.5) % Plt Count (150-450) k/uL MPV Neutrophils % % Lymphocytes % % Monocytes % % Eosinophils % % Basophils % % Neutrophils # (1.3-7.7) k/uL Lymphocytes # (1.0-4.8) k/uL Monocytes # (0-1.0) k/uL Eosinophils # (0-0.7) k/uL Basophils # (0-0.2) k/uL PT (9.0-12.0) sec INR (<1.2) APTT (22.0-30.0) sec Sodium (137-145) mmol/L Potassium (3.5-5.1) mmol/L Chloride (98-107) mmol/L Carbon Dioxide (22-30) mmol/L Anion Gap mmol/L BUN (9-20) mg/dL Creatinine (0.66-1.25) mg/dL Est GFR (CKD-EPI)AfAm (>60 ml/min/1.73 sqM) Est GFR (CKD-EPI)NonAf (>60 ml/min/1.73 sqM) Glucose (74-99) mg/dL Calcium (8.4-10.2) mg/dL Magnesium (1.6-2.3) mg/dL Total Bilirubin (0.2-1.3) mg/dL AST (17-59) U/L ALT (4-49) U/L Alkaline Phosphatase (38-126) U/L Troponin I <0.012 (0.000-0.034) ng/mL Total Protein (6.3-8.2) g/dL Albumin (3.5-5.0) g/dL Disposition Clinical Impression: Unstable angina pectoris Disposition: ADMITTED IP TO THIS [facility] Referrals: Clifford Lazaro MD [Primary Care Provider] - 1-2 days Time of Disposition: 18:31
[2020-05-03 17:51] LABS: Basophils % (A) 0 %; Eosinophils # (A) 0.1 k/uL (0-0.7); Eosinophils % (A) 1 %; HGB 11.7 gm/dL (13.0-17.5); Lymphocytes # (A) 1.5 k/uL (1.0-4.8); Lymphocytes % (A) 18 %; MCH 29.9 pg (25.0-35.0); MCHC 33.3 g/dL (31.0-37.0); MCV 89.8 fL (80.0-100.0); Mean Platelet Volume 6.8; Monocytes # (A) 0.5 k/uL (0-1.0); Monocytes % (A) 6 %; Neutrophils # (A) 5.9 k/uL (1.3-7.7); Neutrophils % (A) 73 %; Platelet Count 265 k/uL (150-450); RDW 13.1 % (11.5-15.5); WBC 8.2 k/uL (3.8-10.6)
[2020-05-03 18:02] LABS: ALT 18 U/L (4-49); AST 27 U/L (17-59); African American GFR (CKD) >90 (>60 ml/min/1.73 sqM); Alkaline Phosphatase 44 U/L (38-126); Anion Gap 3 mmol/L; Blood Urea Nitrogen 22 mg/dL (9-20); Calcium 8.7 mg/dL (8.4-10.2); Carbon Dioxide 30 mmol/L (22-30); Chloride 105 mmol/L (98-107); Glucose 101 mg/dL (74-99); Magnesium 2.4 mg/dL (1.6-2.3); Non-African American GFR(CKD) 83 (>60 ml/min/1.73 sqM); Potassium 4.4 mmol/L (3.5-5.1); Sodium 138 mmol/L (137-145); Total Bilirubin 0.7 mg/dL (0.2-1.3); Total Protein 7.2 g/dL (6.3-8.2)
[2020-05-03 18:11] LABS: INR 1.5 (<1.2); Partial Thromboplastin Time 31.1 sec (22.0-30.0)
--- NOTE | 2020-05-03 18:11 | XR ---
EXAMINATION TYPE: XR chest 2V DATE OF EXAM: 05/03/2020 COMPARISON: 01/19/2016 HISTORY: Chest pain Heart is normal. Lungs are clear of infiltrate. There is no heart failure. There are no hilar masses . There are chest leads. There are sternal wires. IMPRESSION: No active cardiopulmonary disease. Normal heart. Inspiration improved compared to old exa m.
[2020-05-03] MEDS ORDERED: NITROGLYCERIN SL TABS 0.4 MG TAB SUBLINGUAL PRN (18:31)
[2020-05-04] MEDS: NITROGLYCERIN OINT 1 INCH/GM PACKET TOPICAL SCH ×2 (01:28→05:49)
[2020-05-04 05:40] LABS: Cholesterol 193 mg/dL (<200); HDL Cholesterol 34 mg/dL (40-60); LDL Cholesterol,Calculated 134 mg/dL (0-99); Triglycerides 126 mg/dL (<150)
[2020-05-04] MEDS ORDERED: CAFFEINE CITRATE 60 MG/3 ML VIAL IV PRN (08:48)
[2020-05-04] MEDS ORDERED: AMINOPHYLLINE 500 MG/20 ML VIAL IV PRN (08:48)
[2020-05-04] MEDS ORDERED: REGADENOSON 0.4 MG/5 ML SYRINGE IV ONE (08:48)
[2020-05-04] MEDS ORDERED: ASPIRIN 325 MG TAB PO SCH (09:00)
--- NOTE | 2020-05-04 10:27 | P.CRDCN ---
History of Present Illness Consult date: 05/04/20 History of present illness: CHIEF COMPLAINT: Chest pain HISTORY OF PRESENT ILLNESS: This is a 74 -year old male with a past medical history significant for DVT, hyperlipidemia, and coronary artery disease with previous CABG 2 in 2002. Patient states he is to follow in the office with Dr. Callahan but now follows with Dr. Bah, but he states it has probably been a year since he has been seen in the office. We have been asked to see the patient in consultation for chest pain. Patient examined this morning at the bedside in the emergency room. Patient states yesterday he was in his car driving when he began to have some discomfort in his chest and upper abdomen. He states the pain would come for about 15 minutes and then go away and then come back. He states this lasted for a couple hours. He denies any radiation to his back or jaw or arm. He denied any nausea or vomiting. He denied any shortness of breath with this discomfort. He states he went to see his primary care physician, Dr. Lazaro, who recommended that he come to the emergency room for further evaluation. At the time of examination, patient denies any chest pain or pressure. He denies any shortness of breath. DIAGNOSTICS: EKG reveals sinus rhythm with right bundle-branch block Chest xray no active cardiopulmonary disease Laboratory data: WBC 8.2. Hemoglobin 11.7. Platelet count 265. Sodium 138. Potassium 4.4. BUN 22. Creatinine 0.89. Magnesium 2.4. Troponin negative 3. Current home cardiac medications include Coumadin 2 mg Thursday and 4 mg Thursday REVIEW OF SYSTEMS: At the time of my exam: CONSTITUTIONAL: Denies fever or chills. HEENT: Denies blurred vision, vision changes, or eye pain. Denies hemoptysis CARDIOVASCULAR: Denies chest pain, orthopnea, PND or palpitations RESPIRATORY: No shortness of breath. GASTROINTESTINAL: Denies abdominal pain. Denies nausea or vomiting. HEMATOLOGIC: Denies bleeding disorders. GENITOURINARY: Denies any blood in urine. SKIN: Denies pruitis. Denies rash. PHYSICAL EXAM: VITAL SIGNS: Reviewed. GENERAL: Well-developed in no acute distress. HEENT: Head is normocephalic. Pupils are equal, round. Sclerae anicteric. Mucous membranes of the mouth are moist. Neck supple. No JVD or thyromegaly LUNGS: Respirations even and unlabored. Lungs essentially clear to auscultation bilaterally. HEART: Regular rate and rhythm. S1 and S2 heard. ABDOMEN: Soft. Nondistended. Nontender. EXTREMITIES: Normal range of motion. No clubbing or cyanosis. Peripheral pulses intact. No lower extremity edema NEUROLOGIC: Awake and alert. Oriented x 3. ASSESSMENT: Chest pain, troponins negative 3 Coronary artery disease with previous CABG 2 History of DVT, on long-term anticoagulation with Coumadin Hyperlipidemia, patient refuses statin therapy due to myalgias PLAN: An acute coronary event has been ruled out Obtain 2-D echo to assess cardiac structure and function Resume Coumadin Patient to undergo Lexiscan stress test today to assess for reversible ischemia Nurse practitioner note has been reviewed by physician. Signing provider agrees with the documented findings, assessment, and plan of care. Past Medical History Past Medical History: Blood Disorder, Coronary Artery Disease (CAD), Deep Vein Thrombosis (DVT), Hyperlipidemia, Myocardial Infarction ([place]), Vascular Disorder Additional Past Medical History / Comment(s): heparin induced thromocytopenia, BEGINNINGS OF CATARACTS,ARTHRITIS, DIVERTICULITIS Last Myocardial Infarction Date:: 2002 History of Any Multi-Drug Resistant Organisms: None Reported Past Surgical History: Coronary Bypass/CABG, Hernia Repair Additional Past Surgical History / Comment(s): lien filter placement, left heart catheterization, CABG 2, colonoscopy about a year ago. Past Anesthesia/Blood Transfusion Reactions: No Reported Reaction, Motion Sickness Past Psychological History: No Psychological Hx Reported Smoking Status: Never smoker Past Alcohol Use History: None Reported Past Drug Use History: None Reported - Past Family History Mother Family Medical History: Renal Disease Additional Family Medical History / Comment(s): Mother at age 88 from chronic renal disease. Father Family Medical History: Cancer, COPD Additional Family Medical History / Comment(s): Father at age 72 from lung cancer. Sister(s) Family Medical History: No Reported History Additional Family Medical History / Comment(s): Patient has 3 sisters with no major medical problems. Brother(s) Family Medical History: No Reported History Additional Family Medical History / Comment(s): Patient has 3 half-brothers with no major medical problems. Patient has 6 children with no major medical problems. Medications and Allergies Home Medications Medication Instructions Recorded Confirmed Type Famotidine [Pepcid] 20 mg PO DAILY 12/08/19 05/03/20 History Cholecalciferol [Vitamin D3 (25 2,000 unit PO DAILY 05/03/20 05/03/20 History Mcg = 1000 Iu)] Potassium Gluconate 99 mg PO DAILY 05/03/20 05/03/20 History Warfarin Sodium 2 mg PO TUTHSA@0900 05/03/20 05/03/20 History Warfarin Sodium 4 mg PO SUMOWEFR@0900 05/03/20 05/03/20 History Zinc 50 mg PO DAILY 05/03/20 05/03/20 History Allergies Allergy/AdvReac Type Severity Reaction Status Date / Time heparin Allergy HEPARIN Verified 05/03/20 18:01 INDUCED THROMBOCYTOPENIA Physical Exam Vitals: Vital Signs Temp Pulse Pulse Resp BP BP Pulse Ox 05/04/20 09:00 16 05/04/20 08:07 97.6 F 71 16 109/64 97 05/04/20 05:53 98.2 F 69 20 107/72 98 05/04/20 02:00 98.6 F 71 18 105/71 98 05/03/20 23:00 97.9 F 63 16 108/58 96 05/03/20 17:04 98.9 F 74 18 100/64 98 Intake and Output 05/03/20 05/04/20 05/04/20 22:59 06:59 14:59 Other: Voiding Method Toilet # Voids 1 Weight 79.379 kg Results 05/03/20 17:43 05/03/20 17:43 Cardiac Enzymes 05/03/20 05/03/20 05/03/20 Range/Units 17:43 17:43 20:42 AST 27 (17-59) U/L Troponin I <0.012 <0.012 (0.000-0.034) ng/mL 05/03/20 Range/Units 23:59 AST (17-59) U/L Troponin I <0.012 (0.000-0.034) ng/mL Coagulation 05/03/20 Range/Units 17:43 PT 15.0 H (9.0-12.0) sec APTT 31.1 H (22.0-30.0) sec Lipids 05/03/20 Range/Units 17:43 Triglycerides 126 (<150) mg/dL Cholesterol 193 (<200) mg/dL HDL Cholesterol 34 L (40-60) mg/dL CBC 05/03/20 Range/Units 17:43 WBC 8.2 (3.8-10.6) k/uL RBC 3.90 L (4.30-5.90) m/uL Hgb 11.7 L (13.0-17.5) gm/dL Hct 35.0 L (39.0-53.0) % Plt Count 265 (150-450) k/uL Comprehensive Metabolic Panel 05/03/20 Range/Units 17:43 Sodium 138 (137-145) mmol/L Potassium 4.4 (3.5-5.1) mmol/L Chloride 105 (98-107) mmol/L Carbon Dioxide 30 (22-30) mmol/L BUN 22 H (9-20) mg/dL Creatinine 0.89 (0.66-1.25) mg/dL Glucose 101 H (74-99) mg/dL Calcium 8.7 (8.4-10.2) mg/dL AST 27 (17-59) U/L ALT 18 (4-49) U/L Alkaline Phosphatase 44 (38-126) U/L Total Protein 7.2 (6.3-8.2) g/dL Albumin 4.0 (3.5-5.0) g/dL Current Medications Generic Name Dose Route Start Last Admin Trade Name Freq PRN Reason Stop Dose Admin Aminophylline 100 mg 05/04/20 08:48 Aminophylline 500 Mg/20 Ml Vial IV ONCE PRN Patient Response Aspirin 325 mg 05/04/20 09:00 Aspirin 325 Mg Tab PO DAILY MAURICIO Caffeine Citrate 60 mg 05/04/20 08:48 Caffeine Citrate 60 Mg/3 Ml Vial IV 05/04/20 23:00 ONCE PRN Patient Response Nitroglycerin 0.4 mg 05/03/20 18:31 Nitroglycerin Sl Tabs 0.4 Mg Tab SUBLINGUAL Q5M PRN Chest Pain Nitroglycerin 1 inch 05/04/20 00:00 05/04/20 05:49 Nitroglycerin Oint 1 Inch/Gm Packet TOPICAL 1 inch Q6HR [facility] Administration Intake and Output 05/03/20 05/04/20 05/04/20 22:59 06:59 14:59 Other: Voiding Method Toilet # Voids 1 Weight 79.379 kg 05/03/20 17:43 05/03/20 17:43
--- NOTE | 2020-05-04 12:45 | NM ---
EXAMINATION TYPE: NM stress lexiscan cardiolite DATE OF EXAM: 05/04/2020 COMPARISON: NONE HISTORY: Pain TECHNIQUE: After the intravenous administration of 10.8 mCi Tc 99m Sestamibi - Cardiolite resting SP ECT images acquired 45 minutes post injection. The patient received 0.4mg Lexiscan, 24.9 mCi Tc 99m Sestamibi - Stress images obtained [address] injection FINDINGS: Review of stress and rest SPECT images demonstrates mild decreased uptake along the inferolateral lef t ventricle on stress and rest images, some gut activity is suspected on stress images. Gated analys is shows normal wall motion with an estimated left ventricular ejection fraction of 66 %. IMPRESSION: No scintigraphic evidence for reversible ischemia. Findings could be indicative of prior infarct.
--- NOTE | 2020-05-04 13:08 | EST ---
EXERCISE STRESS AGE: 74 SEX: M HT: 5'7" WT: 175 lbs PROTOCOL: Lexiscan STAGE: N/A DURATION OF EXERCISE: N/A HEART RATE REST: 71 BLOOD PRESSURE REST: 114/67 MAXIMUM HEART RATE ACHIEVED: 94 MAXIMUM BLOOD PRESSURE: 119/67 85% MPHR: 122 100% MPHR: 144 METS: N/A INDICATIONS: Chest pain. CLINICAL INFORMATION: Baseline rhythm is a sinus mechanism, right bundle branch block, left axis deviation, baseline blood pressure 114/67 mmHg. Patient received injection of Lexiscan. Electrocardiograph monitoring revealed no evidence of diagnostic ischemic ST deviation. Cardiolite was injected per protocol. CONCLUSION: 1. Nondiagnostic electrocardiograph stress testing. 2. Nuclear images will be reported separately. MMODL / IJN: [id number] /
--- NOTE | 2020-05-04 19:03 | CT ---
EXAMINATION TYPE: CT chest wo con DATE OF EXAM: 05/04/2020 COMPARISON: None HISTORY: Chest discomfort and shortness of breath. CT DLP: 294.9 mGycm Automated exposure control for dose reduction was used. Images obtained from the thoracic inlet to the diaphragm with no contrast. There is some mild linear infiltrate and atelectasis at the posterior lung bases that is more on the right side than the left. There is no pleural effusion. Heart size is normal. There is no pericardial effusion. There is dense coronary artery calcification. There is no mediastinal adenopathy. There are no hilar masses. The upper lung chisholm are clear. There is no evidence of aortic aneurysm. There is some spurring in the lower thoracic spine. Sternum is intact. There are sternal wires. IMPRESSION: There is mild linear infiltrate and subsegmental atelectasis at the posterior lung bases. No suspicio us pulmonary mass. Atherosclerotic vascular disease.
--- NOTE | 2020-05-04 20:02 | HP ---
HISTORY AND PHYSICAL This is a white male who came into the hospital with atypical chest pain into the lower middle chest area. He states it is similar to the chest pain he had 10 years ago when he had a heart attack. It comes and goes. It occurred this time when he was driving in his truck at rest. He came into the hospital to rule out myocardial infarction. He had a normal stress test today. He is still concerned about the chest pain and wants to stay until tomorrow. I will order a CT scan of the chest after discussion with him and make sure there is nothing in his lungs. HOME MEDICINES: 1. Pepcid 20 mg daily. 2. Vitamin D3 daily. 3. Potassium gluconate daily. 4. Warfarin 2 mg daily. 5. Zinc 50 mg daily. 6. Warfarin 4 mg 5 days a week. REVIEW OF SYSTEMS: Fourteen-point review of systems as mentioned above; otherwise negative. PAST MEDICAL HISTORY: Blood disorder, coronary artery disease, DVTs, hypertension, myocardial infarction, vascular disorder, osteoarthritis, cataract surgery, diverticulitis. SURGERIES: CABG surgery, hernia repair. SOCIAL HISTORY: Never smoked. No alcohol. No drugs. FAMILY HISTORY: Mother with renal disease. Father with cancer and COPD. Sister normal. Three half brothers with no signs of medical problems. PHYSICAL EXAMINATION: Vital signs are stable. Afebrile. Temperature 98.9, pulse 74, respiratory rate 18, blood pressure 100/64, oxygen saturation 98. CARDIOVASCULAR: S1, S2. LUNGS: Clear. PSYCH: Fair mood and affect. ABDOMEN: Soft, nontender. SKIN: No rash, excoriations or bruising. NEUROLOGIC: Cranial nerves are intact. MUSCULOSKELETAL: Range of motion full. LYMPH: No lymphadenopathy. EKG shows sinus rhythm. ASSESSMENT: 1. Atypical chest pain. 2. Prior history of coronary artery disease. 3. History of deep venous thrombosis. 4. Hypertension. Please see further orders. Wait for CT scan, and if it is normal, discharge home tomorrow. MMODL / IJN: [id number] /
[2020-05-05 07:54] LABS: INR 1.3 (<1.2); Prothrombin Time 12.8 sec (9.0-12.0)
[2020-05-05 08:53] VITALS: BP 117/64; PULSE 72; RESP 16; TEMP 98.1
[2020-05-05] MEDS ORDERED: WARFARIN 2 MG TAB PO SCH (09:00)
--- NOTE | 2020-05-05 09:09 | P.PN ---
Subjective Progress Note Date: 05/05/20 CHIEF COMPLAINT: Chest pain HISTORY OF PRESENT ILLNESS: This is a 74 -year old male with a past medical history significant for DVT, hyperlipidemia, and coronary artery disease with previous CABG 2 in 2002. Patient states he is to follow in the office with Dr. Callahan but now follows with Dr. Bah, but he states it has probably been a year since he has been seen in the office. We have been asked to see the patient in consultation for chest pain. Patient examined this morning at the bedside in the emergency room. Patient states yesterday he was in his car driving when he began to have some discomfort in his chest and upper abdomen. He states the pain would come for about 15 minutes and then go away and then come back. He states this lasted for a couple hours. He denies any radiation to his back or jaw or arm. He denied any nausea or vomiting. He denied any shortness of breath with this discomfort. He states he went to see his primary care physician, Dr. Lazaro, who recommended that he come to the emergency room for further evaluation. At the time of examination, patient denies any chest pain or pressure. He denies any shortness of breath. 05/05/2020 Patient examined this morning the bedside. He denies chest pain or pressure. He denies short of breath. He underwent Lexiscan stress test yesterday which was negative for reversible ischemia. Vital signs are stable this morning. INR 1.3. PHYSICAL EXAM: VITAL SIGNS: Reviewed. GENERAL: Well-developed in no acute distress. HEENT: Head is normocephalic. Pupils are equal, round. Sclerae anicteric. Mucous membranes of the mouth are moist. Neck supple. No JVD or thyromegaly LUNGS: Respirations even and unlabored. Lungs essentially clear to auscultation bilaterally. HEART: Regular rate and rhythm. S1 and S2 heard. ABDOMEN: Soft. Nondistended. Nontender. EXTREMITIES: Normal range of motion. No clubbing or cyanosis. Peripheral p ulses intact. No lower extremity edema NEUROLOGIC: Awake and alert. Oriented x 3. ASSESSMENT: Chest pain, troponins negative 3 Coronary artery disease with previous CABG 2 History of DVT, on long-term anticoagulation with Coumadin Hyperlipidemia, patient refuses statin therapy due to myalgias PLAN: Resume Coumadin Patient is stable for discharge from a cardiac perspective. Will defer to internal medicine Patient to follow-up with Dr. Bah Nurse practitioner note has been reviewed by physician. Signing provider agrees with the documented findings, assessment, and plan of care. Objective - Vital Signs Vital signs: Vital Signs Temp 98.1 F 05/05/20 08:53 Pulse 72 05/05/20 08:53 Resp 16 05/05/20 08:53 BP 117/64 05/05/20 08:53 Pulse Ox 96 05/05/20 08:53 Intake & Output 05/04/20 05/05/20 05/05/20 18:59 06:59 18:59 Intake Total 1080 Balance 1080 Weight 79.38 kg Intake: Oral 1080 Other: Voiding Method Toilet Toilet Toilet # Voids 2 1 - Labs CBC & Chem 7: 05/03/20 17:43 05/03/20 17:43 Labs: Abnormal Lab Results - Last 24 Hours (Table) 05/05/20 Range/Units 07:34 PT 12.8 H (9.0-12.0) sec INR 1.3 H (<1.2)
[2020-05-06] MEDS ORDERED: WARFARIN 2 MG TAB PO SCH (09:00)
== END 2020-05-05 12:03 ==
LOC: EC 16:50 → 1SOBS 18:40
PROVIDERS: ADMIT Family Medicine; ATTEND Family Medicine
DX: R07.89 Other chest pain (principal); R10.10 Upper abdominal pain, unspecified; E78.00 Pure hypercholesterolemia, unspecified; I25.10 Atherosclerotic heart disease of native coronary artery without angina pectoris; I10 Essential (primary) hypertension; E78.5 Hyperlipidemia, unspecified; I25.2 Old myocardial infarction; H26.9 Unspecified cataract; M19.90 Unspecified osteoarthritis, unspecified site; Z79.899 Other long term (current) drug therapy; Z79.01 Long term (current) use of anticoagulants; Z88.8 Allergy status to other drugs, medicaments and biological substances; Z95.1 Presence of aortocoronary bypass graft; Z86.718 Personal history of other venous thrombosis and embolism; Z87.19 Personal history of other diseases of the digestive system; Z80.1 Family history of malignant neoplasm of trachea, bronchus and lung; Z82.5 Family history of asthma and other chronic lower respiratory diseases; Z84.1 Family history of disorders of kidney and ureter
CPT/HCPCS: 99285; 36415; 93005 ×2; 93017; 93306; 80061; 80053; 83735; 84484; 85025; 85610 ×2; 85730; 71046; 71250; 78452; G0378 ×3; A9500; J2785

== ENCOUNTER 2020-05-05 18:24 | Emergency (ER) | payer MEDICARE, OTHER ==
[2020-05-05 18:33] VITALS: RESP 18; TEMP 98.6
[2020-05-05] MEDS ORDERED: SODIUM CHLORIDE 0.9% 1,000 ML IV ONE (18:48)
--- NOTE | 2020-05-05 19:02 | ED ---
Syncope HPI - General Chief Complaint: Syncope Stated Complaint: Fall, head injury Time Seen by Provider: 05/05/20 18:33 Source: patient Mode of arrival: wheelchair Limitations: no limitations - History of Present Illness Initial Comments: Is a 74-year-old male with a history of CAD status post CABG, DVT on chronic anticoagulation with Coumadin who presents emergency department for a syncopal episode. The patient was in the shower and started to feel very weak and fatigued. He states that he got out of the shower and sat down in a chair he states he states suddenly got very short of breath and then does not recall anything afterwards. He states he woke up on the floor and his is trying to get in the room. The patient states he does not have any preceding lightheadedness or chest pain. He states that he currently still feels fatigued however otherwise has no other symptoms. He does admit to some right-sided scalp pain where he did hit his head on the floor. He denies headache or neck pain. No shortness of breath or chest pain currently. No abdominal pain, nausea, vomiting, or diarrhea. The patient was recently admitted to the hospital for chest pain and had a Lexiscan stress test performed that was unremarkable. He was seen by cardiology and cleared to go home. He denies any GI bleed or blood loss. He does admit that his INR was elevated recently however this was corrected. - Related Data Home Medications Medication Instructions Recorded Confirmed Famotidine [Pepcid] 20 mg PO DAILY 12/08/19 05/05/20 Cholecalciferol [Vitamin D3 (25 2,000 unit PO DAILY 05/03/20 05/05/20 Mcg = 1000 Iu)] Potassium Gluconate 99 mg PO DAILY 05/03/20 05/05/20 Warfarin Sodium 2 mg PO TUTHSA@0900 05/03/20 05/05/20 Warfarin Sodium 4 mg PO SUMOWEFR@0900 05/03/20 05/05/20 Zinc 50 mg PO DAILY 05/03/20 05/05/20 Allergies Allergy/AdvReac Type Severity Reaction Status Date / Time heparin Allergy HEPARIN Verified 05/05/20 20:03 INDUCED THROMBOCYTOPENIA Review of Systems ROS Statement: Those systems with pertinent positive or pertinent negative responses have been documented in the HPI. ROS Other: All systems not noted in ROS Statement are negative. Past Medical History Past Medical History: Blood Disorder, Coronary Artery Disease (CAD), Deep Vein Thrombosis (DVT), Hyperlipidemia, Myocardial Infarction ([place]), Vascular Disorder Additional Past Medical History / Comment(s): heparin induced thromocytopenia, BEGINNINGS OF CATARACTS,ARTHRITIS, DIVERTICULITIS Last Myocardial Infarction Date:: 2002 History of Any Multi-Drug Resistant Organisms: None Reported Past Surgical History: Coronary Bypass/CABG, Hernia Repair Additional Past Surgical History / Comment(s): lien filter placement, left heart catheterization, CABG 2, colonoscopy about a year ago. Past Anesthesia/Blood Transfusion Reactions: No Reported Reaction, Motion Sickness Past Psychological History: No Psychological Hx Reported Smoking Status: Never smoker Past Alcohol Use History: None Reported Past Drug Use History: None Reported - Past Family History Mother Family Medical History: Renal Disease Additional Family Medical History / Comment(s): Mother at age 88 from chronic renal disease. Father Family Medical History: Cancer, COPD Additional Family Medical History / Comment(s): Father at age 72 from lung cancer. Sister(s) Family Medical History: No Reported History Additional Family Medical History / Comment(s): Patient has 3 sisters with no major medical problems. Brother(s) Family Medical History: No Reported History Additional Family Medical History / Comment(s): Patient has 3 half-brothers with no major medical problems. Patient has 6 children with no major medical problems. General Exam - General Exam Comments Initial Comments: Constitutional: Awake alert Appears comfortable Head: [Normocephalic, there is a 2 cm hematoma of the right worship that is tende r to palpation. Eyes: no conjunctival injection No scleral icterus EOMI Neck: No JVD Supple no midline tenderness Heart: Regular rate rhythm normal S1-S2 no murmurs Lungs: Clear to auscultation bilaterally No wheezing No rales Abdomen: Soft nondistended nontender Extremities: Non edematous DP pulses intact Radial pulses intact Neuro: A&Ox3, 5 out of 5 strength in upper and lower extremities bilaterally No focal neurologic deficits Psych: Appropriate mood and affect Limitations: no limitations Course Vital Signs 05/05/20 05/05/20 18:29 20:56 Temperature 98.6 F Pulse Rate 70 62 Respiratory 18 18 Rate Blood Pressure 111/74 124/82 O2 Sat by Pulse 97 99 Oximetry EKG Findings - EKG Comments: EKG Findings:: EKG showing normal sinus rhythm with a rate of 67. There are no abnormal ST 7 changes or T-wave inversions. QTC is 460. Patient has a right bundle-branch block which is unchanged from previous EKGs. No ectopy. Medical Decision Making - Medical Decision Making This is a 74-year-old male who presents emergency department for syncopal event. The patient did have some preceding symptoms. When I further inquire the patient states he's had this episode a few times before when in the shower however this is the first time he actually had a syncopal event. EKG was unrem arkable. Troponin was negative. D-dimer was elevated through CTA was performed that was negative for PE. The rest of blood work was unremarkable. The patient felt improved after fluids. The patient had a recent stress test and was seen by cardiology which was all unremarkable. I did speak with his primary doctor, Sanjay Lazaro who stated that he would be able to follow-up with him in the next couple of days. At this time I feel the patient can go home and follow-up with his primary doctor. Can return emergency Department if he has any recurrence of his chest pain, shortness of breath or if he gets dizzy or lightheaded. All questions were answered. - Lab Data Result diagrams: 05/05/20 19:15 05/05/20 19:15 Lab Results 05/05/20 05/05/20 05/05/20 Range/Units 19:15 19:15 19:15 WBC 10.4 (3.8-10.6) k/uL RBC 4.14 L (4.30-5.90) m/uL Hgb 11.8 L (13.0-17.5) gm/dL Hct 37.4 L (39.0-53.0) % MCV 90.3 (80.0-100.0) fL MCH 28.6 (25.0-35.0) pg MCHC 31.6 (31.0-37.0) g/dL RDW 13.7 (11.5-15.5) % Plt Count 308 (150-450) k/uL MPV 6.8 Neutrophils % 80 % Lymphocytes % 12 % Monocytes % 5 % Eosinophils % 1 % Basophils % 0 % Neutrophils # 8.3 H (1.3-7.7) k/uL Lymphocytes # 1.3 (1.0-4.8) k/uL Monocytes # 0.5 (0-1.0) k/uL Eosinophils # 0.1 (0-0.7) k/uL Basophils # 0.0 (0-0.2) k/uL PT 11.8 (9.0-12.0) sec INR 1.2 H (<1.2) APTT 26.4 (22.0-30.0) sec D-Dimer 1.11 H (<0.60) mg/L FEU Sodium 137 (137-145) mmol/L Potassium 4.8 (3.5-5.1) mmol/L Chloride 108 H (98-107) mmol/L Carbon Dioxide 25 (22-30) mmol/L Anion Gap 4 mmol/L BUN 22 H (9-20) mg/dL Creatinine 0.86 (0.66-1.25) mg/dL Est GFR (CKD-EPI)AfAm >90 (>60 ml/min/1.73 sqM) Est GFR (CKD-EPI)NonAf 84 (>60 ml/min/1.73 sqM) Glucose 110 H (74-99) mg/dL Calcium 8.9 (8.4-10.2) mg/dL Total Bilirubin 0.6 (0.2-1.3) mg/dL AST 25 (17-59) U/L ALT 17 (4-49) U/L Alkaline Phosphatase 37 L (38-126) U/L Troponin I (0.000-0.034) ng/mL Total Protein 7.1 (6.3-8.2) g/dL Albumin 3.9 (3.5-5.0) g/dL 05/05/20 Range/Units 19:15 WBC (3.8-10.6) k/uL RBC (4.30-5.90) m/uL Hgb (13.0-17.5) gm/dL Hct (39.0-53.0) % MCV (80.0-100.0) fL MCH (25.0-35.0) pg MCHC (31.0-37.0) g/dL RDW (11.5-15.5) % Plt Count (150-450) k/uL MPV Neutrophils % % Lymphocytes % % Monocytes % % Eosinophils % % Basophils % % Neutrophils # (1.3-7.7) k/uL Lymphocytes # (1.0-4.8) k/uL Monocytes # (0-1.0) k/uL Eosinophils # (0-0.7) k/uL Basophils # (0-0.2) k/uL PT (9.0-12.0) sec INR (<1.2) APTT (22.0-30.0) sec D-Dimer (<0.60) mg/L FEU Sodium (137-145) mmol/L Potassium (3.5-5.1) mmol/L Chloride (98-107) mmol/L Carbon Dioxide (22-30) mmol/L Anion Gap mmol/L BUN (9-20) mg/dL Creatinine (0.66-1.25) mg/dL Est GFR (CKD-EPI)AfAm (>60 ml/min/1.73 sqM) Est GFR (CKD-EPI)NonAf (>60 ml/min/1.73 sqM) Glucose (74-99) mg/dL Calcium (8.4-10.2) mg/dL Total Bilirubin (0.2-1.3) mg/dL AST (17-59) U/L ALT (4-49) U/L Alkaline Phosphatase (38-126) U/L Troponin I <0.012 (0.000-0.034) ng/mL Total Protein (6.3-8.2) g/dL Albumin (3.5-5.0) g/dL Disposition Clinical Impression: Syncope, Vasovagal syncope Disposition: HOME SELF-CARE Condition: Stable Instructions (If sedation given, give patient instructions): Syncope (ED) Is patient prescribed a controlled substance at d/c from ED?: No Referrals: Eric Lazaro MD [Primary Care Provider] - 1-2 days
[2020-05-05 19:31] LABS: Basophils % (A) 0 %; Eosinophils # (A) 0.1 k/uL (0-0.7); Eosinophils % (A) 1 %; HCT 37.4 % (39.0-53.0); HGB 11.8 gm/dL (13.0-17.5); Lymphocytes # (A) 1.3 k/uL (1.0-4.8); Lymphocytes % (A) 12 %; MCH 28.6 pg (25.0-35.0); MCHC 31.6 g/dL (31.0-37.0); MCV 90.3 fL (80.0-100.0); Mean Platelet Volume 6.8; Monocytes # (A) 0.5 k/uL (0-1.0); Monocytes % (A) 5 %; Neutrophils # (A) 8.3 k/uL (1.3-7.7); Neutrophils % (A) 80 %; Platelet Count 308 k/uL (150-450); RBC 4.14 m/uL (4.30-5.90); RDW 13.7 % (11.5-15.5); WBC 10.4 k/uL (3.8-10.6)
[2020-05-05 19:43] LABS: INR 1.2 (<1.2); Partial Thromboplastin Time 26.4 sec (22.0-30.0); Prothrombin Time 11.8 sec (9.0-12.0)
[2020-05-05 19:44] LABS: ALT 17 U/L (4-49); AST 25 U/L (17-59); African American GFR (CKD) >90 (>60 ml/min/1.73 sqM); Albumin 3.9 g/dL (3.5-5.0); Alkaline Phosphatase 37 U/L (38-126); Anion Gap 4 mmol/L; Blood Urea Nitrogen 22 mg/dL (9-20); Calcium 8.9 mg/dL (8.4-10.2); Carbon Dioxide 25 mmol/L (22-30); Chloride 108 mmol/L (98-107); Glucose 110 mg/dL (74-99); Non-African American GFR(CKD) 84 (>60 ml/min/1.73 sqM); Potassium 4.8 mmol/L (3.5-5.1); Sodium 137 mmol/L (137-145); Total Bilirubin 0.6 mg/dL (0.2-1.3); Total Protein 7.1 g/dL (6.3-8.2)
--- NOTE | 2020-05-05 19:50 | CT ---
EXAMINATION TYPE: CT brain cspine wo con DATE OF EXAM: 05/05/2020 COMPARISON: June 29, 2014 HISTORY: syncope, fall. laceration to right side of forehead. CT DLP: 1367.5 mGycm Automated exposure control for dose reduction was used. There is cerebral cortical atrophy. There is no mass effect nor midline shift. There is no sign of in tracranial hemorrhage. The calvarium is intact. Skull base is intact. There is normal aeration of the mastoid sinuses. There is scalp soft tissue swelling over the lateral right frontal bone. Cervical vertebra have normal alignment. There is disc space narrowing at C5-6 and C6-7. There is no compression fracture. There is multilevel hypertrophic facet arthropathy. Prevertebral soft tissues a re intact. The skull base is intact. IMPRESSION: Cerebral atrophy. No acute intracranial abnormality. Right lateral frontal scalp soft tissue swelling noted. Mild spondylotic changes in the cervical spine. No fracture. Brain and cervical spine unchanged will red to old exam.
[2020-05-05 19:52] LABS: D-Dimer 1.11 mg/L FEU (<0.60)
--- NOTE | 2020-05-05 19:57 | XR ---
EXAMINATION TYPE: XR chest 1V portable DATE OF EXAM: 05/05/2020 COMPARISON: 05/03/2020 HISTORY: Chest pain TECHNIQUE: Single view FINDINGS: Heart is normal. Lungs are clear of consolidation. There are no hilar masses. Costophrenic angles are clear. There are sternal wires. IMPRESSION: No active cardiopulmonary disease. Normal heart. No adverse change compared to old exam.
--- NOTE | 2020-05-05 20:30 | CT ---
EXAMINATION TYPE: CT angio chest DATE OF EXAM: 05/05/2020 COMPARISON: None HISTORY: elevated d-dimer, hx of DVT CT DLP: 363.6 mGycm Automated exposure control for dose reduction was used. CONTRAST: Performed with IV Contrast, patient injected with 74cc mL of Isovue 370. Images obtained from the thoracic inlet to the diaphragm with IV contrast and 3-D post processed imag es. There is mild atelectasis at the right posterior lung base with interstitial infiltrate. There is no pleural effusion. There is no suspicious pulmonary mass. Heart is normal. There is no pericardial eff usion. There is no mediastinal adenopathy. There are no hilar masses. The ascending aorta measures 3.3 cm. There is normal contrast opacification of the pulmonary arteries. There are no filling defects. The b enrique thorax is intact. There is spurring in the lower thoracic spine. There are sternal wires. IMPRESSION: No evidence of pulmonary embolism. There is some interstitial infiltrate and atelectasis right polishing machine tender ior lung base not changed compared to yesterday.
[2020-05-05 20:56] VITALS: BP 124/82; PULSE 62
== END 2020-05-05 21:56 | disposition home or self-care (01) ==
LOC: EC 18:24
DX: R55 Syncope and collapse (principal); S00.83XA Contusion of other part of head, initial encounter; I25.10 Atherosclerotic heart disease of native coronary artery without angina pectoris; I25.2 Old myocardial infarction; E78.5 Hyperlipidemia, unspecified; Z79.01 Long term (current) use of anticoagulants; Z79.899 Other long term (current) drug therapy; Z88.8 Allergy status to other drugs, medicaments and biological substances; Z95.1 Presence of aortocoronary bypass graft; Z86.718 Personal history of other venous thrombosis and embolism; W19.XXXA Unspecified fall, initial encounter
CPT/HCPCS: 36415; 93005; 85379; 80053; 84484; 85025; 85610; 85730; 71045; 72125; 70450; 71275; 99284; 96360; Q9967

== ENCOUNTER 2021-04-11 12:36 | Emergency (ER) | payer MEDICARE, OTHER ==
[2021-04-11 12:43] VITALS: RESP 18; TEMP 98
--- NOTE | 2021-04-11 13:17 | ED ---
General Adult HPI - General Chief complaint: Syncope Stated complaint: Synope Time Seen by Provider: 04/11/21 12:43 Source: patient, EMS Mode of arrival: EMS - History of Present Illness Initial comments: Dictation was produced using [employer] dictation software. please excuse any grammatical, word or spelling errors. Chief Complaint: 75-year-old now presents after episode of syncope History of Present Illness: 75-year-old male he has past medical history cor onary artery disease, DVT dyslipidemia. He was sent in from his primary care physician's office for episode of syncope. She states that he had a blood draw today. He normally does well with blood draws however today's Edvin was painful. He went to the waiting room started up and started to feel a little lightheaded. Allegedly he syncopized. He woke up this morning feeling well. Patient states he has remote history of passing out but hasn't had episode in several years. He states he feels fine currently. Denies any current complaints. Denies any history of heart failure or dysrhythmia. EKG was performed at primary care physician's office showing right bundle branch block. The ROS documented in this emergency department record has been reviewed and confirmed by me. Those systems with pertinent positive or negative responses have been documented in the HPI. All other systems are other negative and/or noncontributory. PHYSICAL EXAM: General Impression: Alert and oriented x3, not in acute distress HEENT: Normocephalic atraumatic, extra-ocular movements intact, pupils equal and reactive to light bilaterally, mucous membranes moist. Cardiovascular: Heart regular rate and rhythm Chest: Able to complete full sentences, no retractions, no tachypnea Abdomen: abdomen soft, non-tender, non-distended, no organomegaly Musculoskeletal: Pulses present and equal in all extremities, no peripheral edema Motor: no focal deficits noted Neurological: CN II-XII grossly intact, no focal motor or sensory deficits noted Skin: Intact with no visualized rashes Psych: Normal affect and mood ED course: 75-year-old well-appearing male presents after episode of syncope. Vital signs upon arrival are within acceptable limits. EKG shows right bundle branch block without any abnormal intervals. EKG compared to EKG from 05/05/2020 showing similar findings. Patient observed in the emergency department for approximately 1 hour 30 minutes. His reevaluated at bedside at 2:10 PM found to be in stable medical condition. Chart review was performed. Echocardiogram performed in May of last year that showed normal myocardial function without any signs of heart failure or diminished ejection fraction. Patient was placed on the alarm security or surveillance monitor. awake overnight monitor was reviewed showing no concerning dysrhythmias. However seemed to be slightly bradycardic. Disposition options were discussed. Patient's symptoms likely secondary to vasovagal syncope. Patient be discharged with strict return precautions. Patient is agreeable to plan. At the bedside he has no complaints. EKG interpretation: Ventricular rate 54, sinus bradycardia, HI interval 170, QRS 150, QTc 449. No HI prolongation, no QTC prolongation, no ST or T-wave changes noted. EKG compared to 05/05/2020 showing no changes. Overall, this EKG is unremarkable - Related Data Home Medications Medication Instructions Recorded Confirmed Cholecalciferol [Vitamin D3 (25 2,000 unit PO DAILY 05/03/20 04/11/21 Mcg = 1000 Iu)] Warfarin Sodium 2 mg PO TUTHSA@0900 05/03/20 04/11/21 Warfarin Sodium 4 mg PO SUMOWEFR@0900 05/03/20 04/11/21 Zinc 50 mg PO DAILY 05/03/20 04/11/21 Famotidine [Pepcid] 20 mg PO BID 04/11/21 04/11/21 Halobetasol Propionate [Ultravate 1 applic TOPICAL HS 04/11/21 04/11/21 0.05%] Magnesium 200 mg PO DAILY 04/11/21 04/11/21 Selenium 50 mcg PO DAILY 04/11/21 04/11/21 Sertraline [Zoloft] 50 mg PO DAILY 04/11/21 04/11/21 Allergies Allergy/AdvReac Type Severity Reaction Status Date / Time heparin Allergy HEPARIN Verified 04/11/21 13:55 INDUCED THROMBOCYTOPENIA Review of Systems ROS Statement: Those systems with pertinent positive or pertinent negative responses have been documented in the HPI. ROS Other: All systems not noted in ROS Statement are negative. Past Medical History Past Medical History: Blood Disorder, Coronary Artery Disease (CAD), Deep Vein Thrombosis (DVT), Hyperlipidemia, Myocardial Infarction (NC), Vascular Disorder Additional Past Medical History / Comment(s): heparin induced thromocytopenia, BEGINNINGS OF CATARACTS,ARTHRITIS, DIVERTICULITIS Last Myocardial Infarction Date:: 2002 History of Any Multi-Drug Resistant Organisms: None Reported Past Surgical History: Coronary Bypass/CABG, Hernia Repair Additional Past Surgical History / Comment(s): lien filter placement, left heart catheterization, CABG 2, colonoscopy about a year ago. Past Anesthesia/Blood Transfusion Reactions: No Reported Reaction, Motion Sickness Past Psychological History: No Psychological Hx Reported Smoking Status: Never smoker Past Alcohol Use History: None Reported Past Drug Use History: None Reported - Past Family History Mother Family Medical History: Renal Disease Additional Family Medical History / Comment(s): Mother at age 88 from chronic renal disease. Father Family Medical History: Cancer, COPD Additional Family Medical History / Comment(s): Father at age 72 from lung cancer. Sister(s) Family Medical History: No Reported History Additional Family Medical History / Comment(s): Patient has 3 sisters with no major medical problems. Brother(s) Family Medical History: No Reported History Additional Family Medical History / Comment(s): Patient has 3 half-brothers with no major medical problems. Patient has 6 children with no major medical problems. Course Vital Signs 04/11/21 04/11/21 12:39 12:44 Temperature 98 F Pulse Rate 56 L Pulse Rate [ 55 L Right Sitting Pulse Oximetery ] Pulse Rate [ 65 Right Standing Pulse Oximetery ] Pulse Rate [ 62 Right Supine Pulse Oximetery ] Respiratory 18 Rate Blood Pressure 116/69 Blood Pressure 102/65 [Right Arm Sitting] Blood Pressure 125/84 [Right Arm Standing] Blood Pressure 111/75 [Right Arm Supine] O2 Sat by Pulse 98 Oximetry Medical Decision Making - Lab Data Result diagrams: 04/11/21 13:19 04/11/21 13:19 Lab Results 04/11/21 04/11/21 Range/Units 13:19 13:19 WBC 8.5 (3.8-10.6) k/uL RBC 4.32 (4.30-5.90) m/uL Hgb 13.1 (13.0-17.5) gm/dL Hct 39.9 (39.0-53.0) % MCV 92.2 (80.0-100.0) fL MCH 30.3 (25.0-35.0) pg MCHC 32.8 (31.0-37.0) g/dL RDW 13.6 (11.5-15.5) % Plt Count 207 (150-450) k/uL MPV 7.1 Neutrophils % 75 % Lymphocytes % 16 % Monocytes % 6 % Eosinophils % 1 % Basophils % 0 % Neutrophils # 6.4 (1.3-7.7) k/uL Lymphocytes # 1.3 (1.0-4.8) k/uL Monocytes # 0.5 (0-1.0) k/uL Eosinophils # 0.1 (0-0.7) k/uL Basophils # 0.0 (0-0.2) k/uL Sodium 138 (137-145) mmol/L Potassium 4.4 (3.5-5.1) mmol/L Chloride 103 (98-107) mmol/L Carbon Dioxide 28 (22-30) mmol/L Anion Gap 7 mmol/L BUN 21 H (9-20) mg/dL Creatinine 0.89 (0.66-1.25) mg/dL Est GFR (CKD-EPI)AfAm >90 (>60 ml/min/1.73 sqM) Est GFR (CKD-EPI)NonAf 83 (>60 ml/min/1.73 sqM) Glucose 97 (74-99) mg/dL Calcium 9.2 (8.4-10.2) mg/dL Disposition Clinical Impression: Syncope Disposition: HOME SELF-CARE Condition: Fair Instructions (If sedation given, give patient instructions): Syncope (ED) Is patient prescribed a controlled substance at d/c from ED?: No Referrals: Clifford Lazaro MD [STAFF PHYSICIAN] - 1-2 days
[2021-04-11 13:32] LABS: Basophils % (A) 0 %; Eosinophils # (A) 0.1 k/uL (0-0.7); Eosinophils % (A) 1 %; HCT 39.9 % (39.0-53.0); HGB 13.1 gm/dL (13.0-17.5); Lymphocytes # (A) 1.3 k/uL (1.0-4.8); Lymphocytes % (A) 16 %; MCH 30.3 pg (25.0-35.0); MCHC 32.8 g/dL (31.0-37.0); MCV 92.2 fL (80.0-100.0); Mean Platelet Volume 7.1; Monocytes # (A) 0.5 k/uL (0-1.0); Monocytes % (A) 6 %; Neutrophils # (A) 6.4 k/uL (1.3-7.7); Neutrophils % (A) 75 %; Platelet Count 207 k/uL (150-450); RBC 4.32 m/uL (4.30-5.90); RDW 13.6 % (11.5-15.5); WBC 8.5 k/uL (3.8-10.6)
[2021-04-11 13:49] LABS: African American GFR (CKD) >90 (>60 ml/min/1.73 sqM); Anion Gap 7 mmol/L; Blood Urea Nitrogen 21 mg/dL (9-20); Calcium 9.2 mg/dL (8.4-10.2); Carbon Dioxide 28 mmol/L (22-30); Chloride 103 mmol/L (98-107); Glucose 97 mg/dL (74-99); Non-African American GFR(CKD) 83 (>60 ml/min/1.73 sqM); Potassium 4.4 mmol/L (3.5-5.1); Sodium 138 mmol/L (137-145)
[2021-04-11 14:30] VITALS: BP 125/84; PULSE 54
== END 2021-04-11 14:29 | disposition home or self-care (01) ==
LOC: EC 12:36
DX: R55 Syncope and collapse (principal); I25.10 Atherosclerotic heart disease of native coronary artery without angina pectoris; E78.5 Hyperlipidemia, unspecified; I25.2 Old myocardial infarction; Z79.01 Long term (current) use of anticoagulants; Z86.718 Personal history of other venous thrombosis and embolism; Z95.1 Presence of aortocoronary bypass graft
CPT/HCPCS: 36415; 80048; 85025; 93005; 99284

== ENCOUNTER 2021-08-06 10:36 | Day surgery (SDC) | payer MEDICARE, OTHER ==
[2021-08-05 10:27] VITALS: BMI 59.0
[~2021-08-06 10:36] MED LIST: ALPRAZolam 0.25 MG TAB PO PRN; ALPRAZolam 0.5 MG TAB PO PRN; ASPIRIN 325 MG TAB PO STA; ATORVASTATIN 80 MG TAB PO STA; NITROGLYCERIN SL TABS 0.4 MG TAB SUBLINGUAL PRN; SODIUM CHLORIDE 0.9% 1,000 ML in EMPTY BAG 1 BAG IV SCH; SODIUM CITRATE 250 ML IV PRN
[2021-08-06 11:04] VITALS: RESP 18; TEMP 98
[2021-08-06 11:13] LABS: Basophils % (A) 0 %; Eosinophils # (A) 0.5 k/uL (0-0.7); Eosinophils % (A) 4 %; HCT 43.1 % (39.0-53.0); HGB 13.9 gm/dL (13.0-17.5); Lymphocytes % (A) 17 %; MCH 29.7 pg (25.0-35.0); MCHC 32.2 g/dL (31.0-37.0); MCV 92.4 fL (80.0-100.0); Mean Platelet Volume 7.3; Monocytes # (A) 0.6 k/uL (0-1.0); Monocytes % (A) 5 %; Neutrophils # (A) 8.9 k/uL (1.3-7.7); Neutrophils % (A) 73 %; Platelet Count 222 k/uL (150-450); RBC 4.66 m/uL (4.30-5.90); RDW 13.6 % (11.5-15.5); WBC 12.3 k/uL (3.8-10.6)
[2021-08-06 12:12] LABS: Calcium 8.3 mg/dL (8.4-10.2); Potassium 4.3 mmol/L (3.5-5.1)
[2021-08-06 12:18] LABS: INR 1.4 (<1.2); Prothrombin Time 14.7 sec (9.0-12.0)
[2021-08-06] MEDS ORDERED: LIDOCAINE 1% INJ 10MG/ML (20 ML MDV) ONE (12:19)
[2021-08-06] MEDS ORDERED: VERAPAMIL 2.5 MG/ML 2 ML AMP ONE (12:19)
[2021-08-06] MEDS ORDERED: fentaNYL (PF) 50 MCG/ML 2 ML AMP ONE (12:27)
[2021-08-06] MEDS: MIDAZOLAM 2 MG/2 ML VIAL IV ONE ×2 (12:28→12:33)
[2021-08-06] MEDS ORDERED: fentaNYL (PF) 50 MCG/ML 2 ML AMP IV ONE (12:28)
[2021-08-06] MEDS ORDERED: LIDOCAINE 1% INJ 10MG/ML (20 ML MDV) SQ ONE (12:36)
[2021-08-06] MEDS ORDERED: VERAPAMIL SYRINGE (5 MG/10 ML) INTRAARTER ONE (12:37)
[2021-08-06] MEDS ORDERED: IOPAMIDOL-370 125ML BTL INJ ONE (13:00)
[2021-08-06 16:56] VITALS: BP 142/74; PULSE 61
--- NOTE | 2021-08-06 18:25 | P.CARDCATH ---
Description of Procedure: PROCEDURES PERFORMED: Left heart catheterization, bilateral coronary angiography, right radial to OM graft angiography, ARMSTRONG to LAD angiography INDICATION: Chest pain and DAHL concerning for angina HISTORY: Patient is a pleasant 76 year old male with history of CAD with prior ARMSTRONG to LAD and right radial to OM who had prior stress test showing no significant ischemia however has been having chest pain as well as dyspnea on exertion concerning for angina. Therefore left heart catheterization was recommended. CONSENT:I have discussed the risks, benefits and alternative therapies for the above-mentioned procedure and for both sedation/analgesia as well as necessary blood product administration, if indicated, as they pertain to this patient. The patient has indicated understanding and acceptance of the risks and procedures discussed. PROCEDURE: After the risks, benefits and alternatives of the above mentioned procedure explained in detail with the patient, informed consent was obtained. Patient was taken to the catheterization lab and prepped and draped in usual fashion. 1% lidocaine was used to anesthetize the left radial artery. A 6- [place] sheath was placed in the left radial artery using modified Seldinger technique. Left coronary angiography was performed with a 5-[place] JL 4.0 catheter and right coronary angiography was performed with a 6-[place] AR2 catheter in various views. A 5-[place] FR4 catheter was inserted into the left ventricle and pressure measurements were obtained. Right radial to OM angio graphy as well as ARMSTRONG angiography was performed with a 5Fr FR4. The left radial sheath was removed and a TR band was placed with hemostasis achieved. The patient tolerated the procedure well. Patient was transported back to the post catheterization holding area in stable condition. Conscious Sedation: Patient was monitored under the direct supervision of vision of myself for conscious sedation using Versed and fentanyl for a total duration of 58 minutes HEMODYNAMICS: Aorta: 144/67 LV: 140/7, LVEDP 15 SELECTIVE CORONARY ARTERIOGRAPHY: LEFT MAIN: The left main is a large caliber vessel which bifurcates into the LAD and circumflex. There is distal left main 20% stenosis. LEFT ANTERIOR DESCENDING CORONARY ARTERY: LAD is a large caliber vessel which wraps around to the apex. There is an ostial 95% LAD stenosis and a mid 100% stenosis. LEFT CIRCUMFLEX CORONARY ARTERY: Left circumflex is a moderate caliber vessel. There is a proximal circumflex 50% stenosis. There is a small to moderate OM1 with mild luminal irregularities and OM2 has a proximal 99% stenosis. The distal circumflex, after OM2 has a 50% stenosis then gives rise to a small caliber OM3. RIGHT CORONARY ARTERY: The right coronary artery is a moderate caliber vessel which gives off a PDA and PLV branch and is the dominant vessel. There is proximal 100% RCA stenosis. Right radial artery to OM2: Radial to OM2 is widely patent with collaterals appearing to feed a diagonal branch. There is a mid OM2 40% stenosis. ARMSTRONG to LAD: ARMSTRONG to LAD is widely patent. There are robust left to right collaterals to the PDA/RCA. FINAL IMPRESSION: 1. [place] CAD as described above including 20% left main, 95% ostial LAD, 100% mid LAD, 50% circumflex, 99% OM2, 100% RCA 2. Patent ARMSTRONG to LAD and right radial to OM2 grafts with robust collaterals to diagonal branch and RCA. 3. Normal left sided pressures. PLAN: 1. Aggressive risk factor modification per most recent ACC/AHA guidelines. 2. Patient with mild to moderate mentasta circumflex disease and otherwise obstructive LAD and OM disease which is grafted and protected. Additional 100% RCA disease however extensive left to right collaterals. No obvious targets and unclear if current anatomy causing significant angina with prior normal Lexiscan stress test. Would continue to treat medically.
== END 2021-08-06 17:17 | disposition home or self-care (01) ==
LOC: CATHCVL 10:36
PROVIDERS: ATTEND Internal Medicine
DX: I25.110 Atherosclerotic heart disease of native coronary artery with unstable angina pectoris (principal); I25.82 Chronic total occlusion of coronary artery; Z95.1 Presence of aortocoronary bypass graft; E78.5 Hyperlipidemia, unspecified; Z20.822 Contact with and (suspected) exposure to COVID-19; Z88.8 Allergy status to other drugs, medicaments and biological substances; Z79.01 Long term (current) use of anticoagulants; Z79.899 Other long term (current) drug therapy
CPT/HCPCS: 93459; 80048; 85025; 85610; 87635; C1894; C1769; J2250; J2001; J3010; Q9967